=== PATIENT | female | born 1955 | race Caucasian/White ===

== ENCOUNTER 2016-09-26 19:25 | Emergency (ER) | payer MEDICARE ==
[~2016-09-26] VITALS: Ht 154.9 cm; Wt 51.7 kg
[~2016-09-26 19:25] MED LIST: BRINTELLIX PO; BUDE10.2 IH; BUSP5TAB PO; PROAIR HFA8.5 GM IH
--- NOTE | 2016-09-26 19:43 | ED.ADGEN ---
Past Medical History Past Medical History: Anxiety, Asthma, COPD, Depression, Hypertension Past Surgical History: No Surgical History Alcohol Use: None Drug Use: None Adult General Chief Complaint Chief Complaint: HEADACHE HPI HPI Patient is a 61 year old female presents emergency Department with a three-day history of migraine headache. Patient states that she gets one about every 3-5 years with these typical symptoms. She reports nausea, vomiting, photosensitivity. Denies any other complaints or recent illness. Review of Systems Review of Systems Constitutional: Denies fever or chills. [] Eyes: Denies change in visual acuity. [] HENT: Denies nasal congestion or sore throat. [] Respiratory: Denies cough or shortness of breath. [] Cardiovascular: Denies chest pain or edema. [] GI: Denies abdominal pain, nausea, vomiting, bloody stools or diarrhea. [] : Denies dysuria. [] Musculoskeletal: Denies back pain or joint pain. [] Integument: Denies rash. [] Neurologic: Denies headache, focal weakness or sensory changes. [] Endocrine: Denies polyuria or polydipsia. [] Lymphatic: Denies swollen glands. [] Psychiatric: Denies depression or anxiety. [] Current Medications Current Medications Current Medications Medications (Trade) Dose Ordered Sig/Khari Start Time Stop Time Status Last Admin Dose Admin Diphenhydramine HCl (Benadryl) 25 mg 1X ONCE 09/26/16 20:00 09/26/16 20:01 DC 09/26/16 20:01 25 MG Fentanyl Citrate (Fentanyl 2ml Vial) 75 mcg 1X ONCE 09/26/16 21:15 09/26/16 21:16 DC 09/26/16 21:08 75 MCG Ketorolac Tromethamine (Toradol) 15 mg 1X ONCE 09/26/16 20:00 09/26/16 20:01 DC 09/26/16 20:01 15 MG Metoclopramide HCl (Reglan) 10 mg 1X ONCE 09/26/16 20:00 09/26/16 20:01 DC 09/26/16 20:01 10 MG Sodium Chloride (Iv Sodium Chloride 0.9% 1000ml Bag) 1,000 ml @ 1,000 mls/hr Q1H 09/26/16 20:00 09/26/16 20:59 DC 09/26/16 20:02 1,000 MLS/HR Allergies Allergies Allergies Coded Allergies Type Severity Reaction Last Updated Verified No Known Drug Allergies 05/14/14 No Physical Exam Physical Exam Constitutional: Well developed, well nourished, no acute distress, non-toxic appearance. [] HENT: Normocephalic, atraumatic, bilateral external ears normal, oropharynx moist, no oral exudates, nose normal. [] Eyes: PERRLA, EOMI, conjunctiva normal, no discharge. [] Neck: Normal range of motion, no tenderness, supple, no stridor. [] Cardiovascular:Heart rate regular rhythm, no murmur [] Lungs & Thorax: Bilateral breath sounds clear to auscultation [] Abdomen: Bowel sounds normal, soft, no tenderness, no masses, no pulsatile masses. [] Skin: Warm, dry, no erythema, no rash. [] Back: No tenderness, no CVA tenderness. [] Extremities: No tenderness, no cyanosis, no clubbing, ROM intact, no edema. [] Neurologic: Alert and oriented X 3, normal motor function, normal sensory function, no focal deficits noted. [] Psychologic: Affect normal, judgement normal, mood normal. [] Current Patient Data Vital Signs Vital Signs Date Time Temp Pulse Resp B/P Pulse Ox O2 Delivery O2 Flow Rate FiO2 09/26/16 21:00 88 32 135/72 99 Nasal Cannula 3 09/26/16 19:45 98.5 98.5 EKG EKG [] Radiology/Procedures Radiology/Procedures [] Course & Med Decision Making Course & Med Decision Making Pertinent Labs and Imaging studies reviewed. (See chart for details) IV fluids, Reglan, Benadryl, and Toradol. Patient feels significantly better and is ready for discharge home. She is being sent home with supportive care instructions and follow-up directions. [] Dragon Disclaimer Dragon Disclaimer This electronic medical record was generated, in whole or in part, using a voice recognition dictation system. REY JONES MD Sep 26, 2016 19:43
[2016-09-26] MEDS ORDERED: DIPHENHYDRAMINE 50 MG/ML VIAL IVP ONE (20:00)
[2016-09-26] MEDS ORDERED: IV NORMAL SALINE 1000ML BAG 1,000 ML IV SCH (20:00)
[2016-09-26] MEDS ORDERED: METOCLOPRAMIDE HCL 10 MG/2 ML VIAL. IV ONE (20:00)
[2016-09-26] MEDS ORDERED: KETOROLAC 15 MG/ML VIAL. IV ONE (20:00)
[2016-09-26 21:00] VITALS: BP 135/72
[2016-09-26] MEDS ORDERED: FENTANYL PF 100 MCG/2 ML VIAL. IV ONE (21:15)
== END 2016-09-26 21:27 | disposition home or self-care (01) ==
LOC: ER 19:25
DX: R11.2 Nausea with vomiting, unspecified (principal); L56.8 Other specified acute skin changes due to ultraviolet radiation; G43.909 Migraine, unspecified, not intractable, without status migrainosus; I10 Essential (primary) hypertension; F41.9 Anxiety disorder, unspecified; F32.9 Major depressive disorder, single episode, unspecified; J44.9 Chronic obstructive pulmonary disease, unspecified
CPT/HCPCS: 96361; 96374; 96375; 99284; J1200; J1885; J2765; J3010; J7030; 99285-25

== ENCOUNTER 2016-09-28 14:39 | Inpatient (IN) | payer MEDICARE, MEDICAID ==
[~2016-09-28] VITALS: Ht 154.9 cm; Wt 49.9 kg
[2016-09-28] MEDS ORDERED: IV NORMAL SALINE 1000ML BAG 1,000 ML IV SCH (15:45)
[2016-09-28] MEDS ORDERED: PROCHLORPERAZINE 10 MG/2 ML VIAL. IV ONE (15:45)
[2016-09-28] MEDS ORDERED: DIPHENHYDRAMINE 50 MG/ML VIAL IVP ONE (15:45)
--- NOTE | 2016-09-28 16:14 | RAD ---
Indication headache. Nausea and vomiting. Duration of symptoms for days. Noncontrast images of the head were obtained. No prior imaging of the head is available. The calvarium appears unremarkable. The visualized paranasal sinuses appear normal. There is no subdural or epidural hematoma. There is no evidence of hemorrhage. There is no midline shift. There is possible mild sulci effacement and or swelling in the right temporal lobe. The finding is not certain. If right hemispheric and/or temporal pathology is suspect an MRI examination would be advised. IMPRESSION: No evidence of hemorrhage. Possible mild swelling in the right temporal area. The finding is not certain. See above discussion PQRS Compliance Statement: One or more of the following individualized dose reduction techniques were utilized for this examination: 1. Automated exposure control 2. Adjustment of the mA and/or kV according to patient size 3. Use of iterative reconstruction technique
[2016-09-28 16:46] LABS: BASO # 0.1 x10^3/uL (0.0-0.2); BASO % 1 % (0-3); EOS % 2 % (0-3); HEMATOCRIT 41.7 % (36.0-47.0); HEMOGLOBIN 13.8 g/dL (12.0-15.5); LYMPH # 1.5 x10^3/uL (1.0-4.8); LYMPH % 18 % (24-48); MEAN CORPUSCULAR HEMOGLOBIN 29 pg (25-35); MEAN CORPUSCULAR HGB CONC 33 g/dL (31-37); MEAN CORPUSCULAR VOLUME 88 fL (79-100); MONO % 10 % (0-9); NEUT % 69 % (31-73); PLATELET COUNT 295 x10^3/uL (140-400); RED BLOOD COUNT 4.73 x10^6/uL (3.50-5.40); RED CELL DISTRIBUTION WIDTH 12.9 % (11.5-14.5); WHITE BLOOD COUNT 8.6 x10^3/uL (4.0-11.0)
[2016-09-28 17:01] LABS: CALCIUM 9.3 mg/dL (8.5-10.1); CREATININE 0.8 mg/dL (0.6-1.0); GFR 72.7; POTASSIUM 3.6 mmol/L (3.5-5.1)
[2016-09-28 17:07] LABS: ALBUMIN 4.1 g/dL (3.4-5.0); ALBUMIN/GLOBULIN RATIO 1.2 (1.0-1.7); TOTAL BILIRUBIN 0.4 mg/dL (0.2-1.0); TOTAL PROTEIN 7.6 g/dL (6.4-8.2)
--- NOTE | 2016-09-28 17:51 | PHYS DOC ---
Past Medical History Past Medical History: Anxiety, Asthma, COPD, Depression, Hypertension, Migraines Past Surgical History: No Surgical History Additional Information: quit March 2016 Alcohol Use: None Drug Use: None Adult General Chief Complaint Chief Complaint: HEADACHE HPI HPI Patient is a 61 year old female who presents with headache. Patient reports she has had a migraine since this past . She describes a throbbing in the front of her head. Patient reports she has a headache everyday, but it is not as bad as this. However she does have a history of migraines similar in intensity to this one did occur about every 5 years. She has been taking allergy medication for cold as well as Excedrin with insufficient relief. She denies any fever. No numbness or weakness. She does report some soreness in her back from lying curled up on the couch for so long. She was seen at [facility] today and instructed to come to the Emergency Department. Review of Systems Review of Systems Constitutional: Denies fever or chills Eyes: Denies change in visual acuity or eye pain HENT: Denies nasal congestion or sore throat Respiratory: Denies cough or shortness of breath Cardiovascular: Denies chest pain GI: Denies abdominal pain, nausea, vomiting, bloody stools or diarrhea : Denies dysuria or hematuria Musculoskeletal: Denies joint pain Integument: Denies rash or skin lesions Neurologic: Headache. Denies focal weakness or sensory changes Current Medications Current Medications Current Medications Medications (Trade) Dose Ordered Sig/Khari Start Time Stop Time Status Last Admin Dose Admin Diphenhydramine HCl (Benadryl) 25 mg 1X ONCE 09/28/16 15:45 09/28/16 15:50 DC 09/28/16 16:25 25 MG Prochlorperazine Edisylate (Compazine) 10 mg 1X ONCE 09/28/16 15:45 09/28/16 15:50 DC 09/28/16 16:25 10 MG Sodium Chloride (Iv Sodium Chloride 0.9% 1000ml Bag) 1,000 ml @ 1,000 mls/hr Q1H 09/28/16 15:45 09/28/16 16:44 DC 09/28/16 16:26 1,000 MLS/HR Allergies Allergies Allergies Coded Allergies Type Severity Reaction Last Updated Verified No Known Drug Allergies 09/28/16 No Physical Exam Physical Exam Constitutional: Well developed, well nourished, non-toxic appearance HENT: Normocephalic, atraumatic, bilateral external ears normal Eyes: PERRL, EOMI, conjunctiva normal, no discharge Neck: Normal range of motion, no stridor. Supple. Cardiovascular: Heart rate normal, regular rhythm, no murmur Lungs & Thorax: Bilateral breath sounds clear to auscultation Abdomen: Bowel sounds normal, soft, non-distended, no TTP Skin: Warm, dry, no erythema, no rash Back: No stepoff or deformity Extremities: No obvious deformity, no edema. R hand bruised from prior IV Neurologic: Alert and oriented X 3, GCS 15, CN II-XII grossly intact, strength intact and symmetrical throughout, sensation to light touch intact throughout Current Patient Data Vital Signs Vital Signs Date Time Temp Pulse Resp B/P Pulse Ox O2 Delivery O2 Flow Rate FiO2 09/28/16 14:50 98.4 91 22 122/79 98 Room Air 98.4 Lab Values Laboratory Tests Test 09/28/16 16:25 09/28/16 17:54 White Blood Count 8.6x10^3/uL (4.0-11.0) Red Blood Count 4.73x10^6/uL (3.50-5.40) Hemoglobin 13.8g/dL (12.0-15.5) Hematocrit 41.7% (36.0-47.0) Mean Corpuscular Volume 88fL (79-100) Mean Corpuscular Hemoglobin 29pg (25-35) Mean Corpuscular Hemoglobin Concent 33g/dL (31-37) Red Cell Distribution Width 12.9% (11.5-14.5) Platelet Count 295x10^3/uL (140-400) Neutrophils (%) (Auto) 69% (31-73) Lymphocytes (%) (Auto) 18% (24-48) L Monocytes (%) (Auto) 10% (0-9) H Eosinophils (%) (Auto) 2% (0-3) Basophils (%) (Auto) 1% (0-3) Neutrophils # (Auto) 5.9x10^3uL (1.8-7.7) Lymphocytes # (Auto) 1.5x10^3/uL (1.0-4.8) Monocytes # (Auto) 0.9x10^3/uL (0.0-1.1) Eosinophils # (Auto) 0.2x10^3/uL (0.0-0.7) Basophils # (Auto) 0.1x10^3/uL (0.0-0.2) Sodium Level 144mmol/L (136-145) Potassium Level 3.6mmol/L (3.5-5.1) Chloride Level 103mmol/L (98-107) Carbon Dioxide Level 31mmol/L (21-32) Anion Gap 10 (6-14) Blood Urea Nitrogen 11mg/dL (7-20) Creatinine 0.8mg/dL (0.6-1.0) Estimated GFR (Cockcroft-Gault) 72.7 BUN/Creatinine Ratio 14 (6-20) Glucose Level 93mg/dL (70-99) Calcium Level 9.3mg/dL (8.5-10.1) Total Bilirubin 0.4mg/dL (0.2-1.0) Aspartate Amino Transferase (AST) 21U/L (15-37) Alanine Aminotransferase (ALT) 20U/L (14-59) Alkaline Phosphatase 121U/L (46-116) H Total Protein 7.6g/dL (6.4-8.2) Albumin 4.1g/dL (3.4-5.0) Albumin/Globulin Ratio 1.2 (1.0-1.7) Urine Collection Type Unknown Urine Color Yellow Urine Clarity Cloudy Urine pH 6.5 Urine Specific [place] 1.015 Urine Protein Negativemg/dL (NEG-TRACE) Urine Glucose (UA) Negativemg/dL (NEG) Urine Ketones (Stick) 15mg/dL (NEG) Urine Blood Negative (NEG) Urine Nitrite Negative (NEG) Urine Bilirubin Negative (NEG) Urine Urobilinogen Dipstick 0.2mg/dL (0.2 mg/dL) Urine Leukocyte Esterase Small (NEG) Urine RBC 0/HPF (0-2) Urine WBC 5-10/HPF (0-4) Urine Squamous Epithelial Cells Few/LPF Urine Bacteria 0/HPF (0-FEW) Urine Mucus Mod/LPF Laboratory Tests 09/28/16 16:25 Laboratory Tests 09/28/16 16:25 EKG EKG [] Radiology/Procedures Radiology/Procedures CT head: Indication headache. Nausea and vomiting. Duration of symptoms for days. Noncontrast images of the head were obtained. No prior imaging of the head is available. The calvarium appears unremarkable. The visualized paranasal sinuses appear normal. There is no subdural or epidural hematoma. There is no evidence of hemorrhage. There is no midline shift. There is possible mild sulci effacement and or swelling in the right temporal lobe. The finding is not certain. If right hemispheric and/or temporal pathology is suspect an MRI examination would be advised. IMPRESSION: No evidence of hemorrhage. Possible mild swelling in the right temporal area. The finding is not certain. See above discussion Course & Med Decision Making Course & Med Decision Making Pertinent Labs and Imaging studies reviewed. (See chart for details) Patient is 61-year-old female who presents with persistent migraine headache. Has had migraines like this multiple times in the past. Neuro exam without focal deficit. CT head, labs ordered to evaluate. IV fluids, migraine cocktail ordered for pain relief. Labs unremarkable. No fever, no leukocytosis. CT head results as above. Discussed results with patient and family. Patient still having headache at this time. Discussed with Dr. Kay, will admit under her care for further evaluation and treatment. Dragon Disclaimer Dragon Disclaimer This electronic medical record was generated, in whole or in part, using a voice recognition dictation system. Departure Departure Impression: Primary Impression: Intractable migraine Disposition: ADMITTED INPATIENT Admitting Physician: Veronica Kay Condition: STABLE Referrals: ANTWAN FIGUEROA APRN (PCP) BREANN YUAN MD Sep 28, 2016 17:51
[2016-09-28] MEDS ORDERED: MORPHINE SULFATE 4 MG/ML DISP.SYRIN. IV ONE (18:00)
[2016-09-28] MEDS ORDERED: ACETAMINOPHEN 500 MG TABLET PO ONE (18:00)
[2016-09-28 18:01] LABS: BILIRUBIN,URINE NEGATIVE (NEG); GLUCOSE,URINE NEGATIVE (NEG); NITRITE,URINE NEGATIVE (NEG); PH,URINE 6.5; PROTEIN,URINE NEGATIVE (NEG-TRACE); UROBILINOGEN,URINE 0.2 mg/dL (0.2 mg/dL)
[2016-09-28 18:07] LABS: BACTERIA,URINE 0 /HPF (0-FEW); RBC,URINE 0 /HPF (0-2); SQUAMOUS EPITHELIAL CELL,UR FEW /LPF
[2016-09-28] MEDS ORDERED: HYDROCODONE/APAP 5/325MG TABLET. PO PRN (18:15)
[2016-09-28] MEDS ORDERED: MORPHINE SULFATE 2 MG/ML DISP.SYRIN. IV PRN (18:15)
[2016-09-28] MEDS ORDERED: ONDANSETRON PF 4 MG/2 ML VIAL. IV PRN (18:15)
[2016-09-28] MEDS ORDERED: ACETAMINOPHEN 325 MG TABLET. PO PRN (18:15)
[2016-09-28] MEDS ORDERED: hydrALAZINE 20 MG/ML VIAL. IVP PRN (18:30)
[2016-09-28] MEDS ORDERED: ALBUTEROL SULFATE 2.5 MG/3 ML NEBU. NEB PRN (18:30)
--- NOTE | 2016-09-28 18:30 | ACF ---
Admission Forms Criteria HEADACHES Clinical Indications for Admission to Inpatient Care (Place 'X' for any and all applicable criteria): Admission is indicated for ANY ONE of the following(1)(2)(3)(4): [X]I. Inpatient admission required rather than observational care (Also use Headaches: Observation Care as appropriate) because of ANY ONE of the following: [X]a) Severe pain requiring acute inpatient management [ ]b) Altered mental status that is severe or persistent [ ]c) Vomiting or dehydration that is severe or persistent [ ]d) New-onset focal neurologic deficit that is severe or persistent [ ]e) Hypertension requiring inpatient treatment [ ]f) Severe (new) neurologic findings requiring inpatient care as indicated by ANY ONE of following(9)(10): [ ]1) Papilledema [ ]2) Cerebral edema [ ]3) Mass effect on CT scan [ ]4) Cerebral bleeding, ischemia, or vasospasm(16) [ ]5) Hydrocephalus(17) [ ]6) Uncontrolled seizures [ ]g) IV infusion of anticoagulation, platelet inhibitors vasoactive, or antiarrhythmic medication. [ ]h) Cerebral bleeding, hydrocephalus, or vasospasm monitoring (16) [ ]i) Increased intracranial pressure or cerebral edema monitoring (17) [ ]j) Other condition, treatment or monitoring requiring inpatient admission [ ]II. Unruptured but threatening aneurysm or vascular malformation [ ]III. Venous sinus thrombosis [ ]IV. Increased intracranial pressure [ ]V. Cerebral spinal fluid leak with decreased intracranial pressure [ ]. Medication-overuse headache that has failed all outpatient management options [ ]VII. Vasculitis (eg, giant cell (temporal) arteritis, central nervous system vasculitis) requiring IV corticosteroids, IV antithrombotic therapy, or inpatient monitoring (eg, visual symptoms or findings, other ischemic manifestations)[A](10)(11) Extended stay beyond goal length of stay may be needed for (27): [ ]a) Intractable migraine [ ]b) Subarachnoid or intracranial hemorrhage [ ]c) Malignant hypertension [ ]d) Detoxification from drug withdrawal in medication-overuse headache (29) The original [facility] content created by [facility] [employer] has been revised. The portions of the content which have been revised are identified through the use of italic text or in bold, and [employer] has neither reviewed nor approved the modified material.All other unmodified content is copyright [facility]. Please see references footnoted in the original [facility] edition 2016 Admission Criteria Met?: Yes KASH RAMON Sep 28, 2016 18:30
--- NOTE | 2016-09-28 18:34 | PDOC1 ---
History and Physical Date of Admission Date of Admission 09/28/16 Identification/Chief Complaint Chief Complaint headache Problems: Source Source: Caregiver, Chart review, Patient History of Present Illness History of Present Illness HPI HPI Patient is a 61 year old female who presents with headache. She has migraine for a long time, usually has headache daily, at the middle forhead, pulsating, noise and light bothers her, but she still can function daily. She takes exedrine daily for the headache. She has migraine flare every 3-5 years. not follow any neuro. Last , she has the severe headache again, constant, with vomiting on Wednesday, no vision change or other neurologic deficit, no fever, chills, sob, chest pain. She has had cold 1 week ago. She was seen at [facility] today and instructed to come to the Emergency Department. ct showed Possible mild swelling in the right temporal area.. Past Medical History Cardiovascular: HTN Pulmonary: COPD Past Surgical History Past Surgical History: No pertinent history Family History Family History: No Significant Social History Smoke: Quit ALCOHOL: none Drugs: None Current Problem List Problem List Problems Medical Problems: (1) Intractable migraine Status: Acute Current Medications Current Medications Current Medications Medications (Trade) Dose Ordered Sig/Khari Start Time Stop Time Status Last Admin Dose Admin Acetaminophen (Tylenol) 650 mg PRN Q6HRS PRN 09/28/16 18:15 Acetaminophen/ Hydrocodone Bitart (Lortab 5/325) 1 tab PRN Q4HRS PRN 09/28/16 18:15 Albuterol Sulfate (Ventolin Neb Soln) 2.5 mg RTQID 09/28/16 20:00 Budesonide (Pulmicort) 0.5 mg RTBID 09/28/16 20:00 Buspirone HCl (Buspar) 15 mg BID 09/28/16 21:00 Diphenhydramine HCl (Benadryl) 25 mg 1X ONCE 09/28/16 15:45 09/28/16 15:50 DC 09/28/16 16:25 25 MG Enoxaparin Sodium (Lovenox 40mg Syringe) 40 mg Q24H 09/28/16 21:00 Morphine Sulfate 1 mg PRN Q1HR PRN 09/28/16 18:15 Non-Formulary Medication 2 puff BID 09/28/16 21:00 UNV Ondansetron HCl (Zofran) 4 mg PRN Q6HRS PRN 09/28/16 18:15 Prochlorperazine Edisylate (Compazine) 10 mg 1X ONCE 09/28/16 15:45 09/28/16 15:50 DC 09/28/16 16:25 10 MG Sodium Chloride (Iv Sodium Chloride 0.9% 1000ml Bag) 1,000 ml @ 1,000 mls/hr Q1H 09/28/16 15:45 09/28/16 16:44 DC 09/28/16 16:26 1,000 MLS/HR Allergies Allergies Allergies Coded Allergies Type Severity Reaction Last Updated Verified No Known Drug Allergies 09/28/16 No ROS Review of System CONSTITUTIONAL: No fever or chills EYES: No recent changes SKIN: No rash or itching CARDIOVASCULAR: No chest pain, syncope, palpitations, or edema RESPIRATORY: No SOB or cough GASTROINTESTINAL: No nausea, vomiting or abdominal pain NEUROLOGICAL: No headaches or weakness ENDOCRINE: No cold or heat intolerance GENITOURINARY: No urgency or frequency of urination MUSCULOSKELETAL: No back pain or joint pain LYMPHATICS: No enlarged lymph nodes PSYCHIATRIC: No anxiety or depression Physical Exam Physical Exam GEN.: No apparent distress. Alert and oriented. looks very weak. HEENT: Head is normocephalic, atraumatic NECK: Supple. LUNGS: Clear to auscultation. HEART: RRR, S1, S2 present. Peripheral pulses intact ABDOMEN: Soft, nontender. Positive bowel sounds. EXTREMITIES: Without any cyanosis. NEUROLOGIC: Normal speech, normal tone PSYCHIATRIC: Normal affect, normal mood. SKIN: No ulcerations Vitals Vitals Vital Signs Date Time Temp Pulse Resp B/P Pulse Ox O2 Delivery O2 Flow Rate FiO2 09/28/16 14:50 98.4 91 22 122/79 98 Room Air 98.4 Labs Labs Laboratory Tests Test 09/28/16 16:25 09/28/16 17:54 White Blood Count 8.6x10^3/uL (4.0-11.0) Red Blood Count 4.73x10^6/uL (3.50-5.40) Hemoglobin 13.8g/dL (12.0-15.5) Hematocrit 41.7% (36.0-47.0) Mean Corpuscular Volume 88fL (79-100) Mean Corpuscular Hemoglobin 29pg (25-35) Mean Corpuscular Hemoglobin Concent 33g/dL (31-37) Red Cell Distribution Width 12.9% (11.5-14.5) Platelet Count 295x10^3/uL (140-400) Neutrophils (%) (Auto) 69% (31-73) Lymphocytes (%) (Auto) 18% (24-48) Monocytes (%) (Auto) 10% (0-9) Eosinophils (%) (Auto) 2% (0-3) Basophils (%) (Auto) 1% (0-3) Neutrophils # (Auto) 5.9x10^3uL (1.8-7.7) Lymphocytes # (Auto) 1.5x10^3/uL (1.0-4.8) Monocytes # (Auto) 0.9x10^3/uL (0.0-1.1) Eosinophils # (Auto) 0.2x10^3/uL (0.0-0.7) Basophils # (Auto) 0.1x10^3/uL (0.0-0.2) Sodium Level 144mmol/L (136-145) Potassium Level 3.6mmol/L (3.5-5.1) Chloride Level 103mmol/L (98-107) Carbon Dioxide Level 31mmol/L (21-32) Anion Gap 10 (6-14) Blood Urea Nitrogen 11mg/dL (7-20) Creatinine 0.8mg/dL (0.6-1.0) Estimated GFR (Cockcroft-Gault) 72.7 BUN/Creatinine Ratio 14 (6-20) Glucose Level 93mg/dL (70-99) Calcium Level 9.3mg/dL (8.5-10.1) Total Bilirubin 0.4mg/dL (0.2-1.0) Aspartate Amino Transf (AST/SGOT) 21U/L (15-37) Alanine Aminotransferase (ALT/SGPT) 20U/L (14-59) Alkaline Phosphatase 121U/L (46-116) Total Protein 7.6g/dL (6.4-8.2) Albumin 4.1g/dL (3.4-5.0) Albumin/Globulin Ratio 1.2 (1.0-1.7) Urine Collection Type Unknown Urine Color Yellow Urine Clarity Cloudy Urine pH 6.5 Urine Specific [place] 1.015 Urine Protein Negativemg/dL (NEG-TRACE) Urine Glucose (UA) Negativemg/dL (NEG) Urine Ketones (Stick) 15mg/dL (NEG) Urine Blood Negative (NEG) Urine Nitrite Negative (NEG) Urine Bilirubin Negative (NEG) Urine Urobilinogen Dipstick 0.2mg/dL (0.2 mg/dL) Urine Leukocyte Esterase Small (NEG) Urine RBC 0/HPF (0-2) Urine WBC 5-10/HPF (0-4) Urine Squamous Epithelial Cells Few/LPF Urine Bacteria 0/HPF (0-FEW) Urine Mucus Mod/LPF Laboratory Tests Test 09/28/16 16:25 09/28/16 17:54 White Blood Count 8.6x10^3/uL (4.0-11.0) Red Blood Count 4.73x10^6/uL (3.50-5.40) Hemoglobin 13.8g/dL (12.0-15.5) Hematocrit 41.7% (36.0-47.0) Mean Corpuscular Volume 88fL (79-100) Mean Corpuscular Hemoglobin 29pg (25-35) Mean Corpuscular Hemoglobin Concent 33g/dL (31-37) Red Cell Distribution Width 12.9% (11.5-14.5) Platelet Count 295x10^3/uL (140-400) Neutrophils (%) (Auto) 69% (31-73) Lymphocytes (%) (Auto) 18% (24-48) Monocytes (%) (Auto) 10% (0-9) Eosinophils (%) (Auto) 2% (0-3) Basophils (%) (Auto) 1% (0-3) Neutrophils # (Auto) 5.9x10^3uL (1.8-7.7) Lymphocytes # (Auto) 1.5x10^3/uL (1.0-4.8) Monocytes # (Auto) 0.9x10^3/uL (0.0-1.1) Eosinophils # (Auto) 0.2x10^3/uL (0.0-0.7) Basophils # (Auto) 0.1x10^3/uL (0.0-0.2) Sodium Level 144mmol/L (136-145) Potassium Level 3.6mmol/L (3.5-5.1) Chloride Level 103mmol/L (98-107) Carbon Dioxide Level 31mmol/L (21-32) Anion Gap 10 (6-14) Blood Urea Nitrogen 11mg/dL (7-20) Creatinine 0.8mg/dL (0.6-1.0) Estimated GFR (Cockcroft-Gault) 72.7 BUN/Creatinine Ratio 14 (6-20) Glucose Level 93mg/dL (70-99) Calcium Level 9.3mg/dL (8.5-10.1) Total Bilirubin 0.4mg/dL (0.2-1.0) Aspartate Amino Transf (AST/SGOT) 21U/L (15-37) Alanine Aminotransferase (ALT/SGPT) 20U/L (14-59) Alkaline Phosphatase 121U/L (46-116) Total Protein 7.6g/dL (6.4-8.2) Albumin 4.1g/dL (3.4-5.0) Albumin/Globulin Ratio 1.2 (1.0-1.7) Urine Collection Type Unknown Urine Color Yellow Urine Clarity Cloudy Urine pH 6.5 Urine Specific [place] 1.015 Urine Protein Negativemg/dL (NEG-TRACE) Urine Glucose (UA) Negativemg/dL (NEG) Urine Ketones (Stick) 15mg/dL (NEG) Urine Blood Negative (NEG) Urine Nitrite Negative (NEG) Urine Bilirubin Negative (NEG) Urine Urobilinogen Dipstick 0.2mg/dL (0.2 mg/dL) Urine Leukocyte Esterase Small (NEG) Urine RBC 0/HPF (0-2) Urine WBC 5-10/HPF (0-4) Urine Squamous Epithelial Cells Few/LPF Urine Bacteria 0/HPF (0-FEW) Urine Mucus Mod/LPF VTE Prophylaxis Ordered VTE Prophylaxis Devices: Yes VTE Pharmacological Prophylaxi: Yes Assessment/Plan Assessment/Plan 1. intractable headache, likely migraine flare 2. copd 3. depression 4. anxiety 5. HTN plan: 1. brain MRI 2. neuro consult 3. add sumatriptan 6mg sc x1. pt got benadryl and compazine in ER. REGlan iv x1 4. hold exedrine 5. sumatriptan prn 6. pt likely need migraine prevention meds when dc. dvt ppx cont home meds MARTIN,CHUNMEI MD Sep 28, 2016 18:34
[2016-09-28] MEDS ORDERED: METOCLOPRAMIDE HCL 10 MG/2 ML VIAL. IV ONE (19:00)
[2016-09-28] MEDS ORDERED: SUMATRIPTAN 6 MG/0.5 ML VIAL. SQ ONE (19:00)
[2016-09-28] MEDS: BUDESONIDE 0.5 MG/2 ML NEBU NEB SCH (20:12)
[2016-09-28] MEDS: ALBUTEROL SULFATE 2.5 MG/3 ML NEBU. NEB SCH (20:12)
[2016-09-28] MEDS: ENOXAPARIN 40 MG/0.4 ML DISP.SYRIN. SQ SCH (20:56)
[2016-09-28] MEDS: busPIRone 5 MG TABLET. PO SCH (20:56)
[2016-09-28] MEDS ORDERED: NON FORMULARY ITEM (Budesonide/Formoterol Fumarate (Symbicort 160-4.5 Mcg Inhaler) 2 PUFF) IH SCH (21:00)
[2016-09-28 21:12] VITALS: BP 128/61
[2016-09-28 23:03] VITALS: BP 99/48
[2016-09-29 03:01] VITALS: BP 98/49
[2016-09-29 05:19] LABS: BASO # 0.1 x10^3/uL (0.0-0.2); BASO % 2 % (0-3); EOS % 4 % (0-3); HEMATOCRIT 35.3 % (36.0-47.0); HEMOGLOBIN 11.9 g/dL (12.0-15.5); LYMPH % 31 % (24-48); MEAN CORPUSCULAR HEMOGLOBIN 30 pg (25-35); MEAN CORPUSCULAR HGB CONC 34 g/dL (31-37); MEAN CORPUSCULAR VOLUME 88 fL (79-100); MONO % 14 % (0-9); NEUT % 49 % (31-73); PLATELET COUNT 261 x10^3/uL (140-400); RED CELL DISTRIBUTION WIDTH 12.9 % (11.5-14.5); WHITE BLOOD COUNT 6.4 x10^3/uL (4.0-11.0)
[2016-09-29] MEDS: SUMATRIPTAN SUCCINATE 25 MG TABLET. PO PRN ×2 (05:26→19:54)
[2016-09-29 05:40] LABS: CALCIUM 8.6 mg/dL (8.5-10.1); CREATININE 0.8 mg/dL (0.6-1.0); GFR 72.7; POTASSIUM 3.2 mmol/L (3.5-5.1)
[2016-09-29 07:00] VITALS: BP 127/59
[2016-09-29] MEDS: ALBUTEROL SULFATE 2.5 MG/3 ML NEBU. NEB SCH ×4 (07:17→20:20)
[2016-09-29] MEDS: BUDESONIDE 0.5 MG/2 ML NEBU NEB SCH ×2 (08:00→20:20)
[2016-09-29] MEDS: busPIRone 5 MG TABLET. PO SCH ×2 (08:43→21:06)
[2016-09-29] MEDS: AMLODIPINE BESYLATE 5 MG TABLET PO SCH (08:43)
[2016-09-29] MEDS ORDERED: ENOXAPARIN 40 MG/0.4 ML DISP.SYRIN. SQ SCH (09:00)
--- NOTE | 2016-09-29 10:42 | PDOC2 ---
NEUROLOGY CONSULT Date of Admission Date of Admission DATE: 09/29/16 TIME: 10:34 Reason for Consult Reason for Consult: Headache Referring Physician Referring Physician: Dr. Kay PCP: Marianne Castaneda APRN Source Source: Chart review, Patient History of Present Illness History of Present Illness The patient is a 61-year-old right-handed female with the chief complaint of migraine. She describes throbbing pain with photophonophobia nausea, with episodes about every 3 years or so. She comes into the hospital for pain control and leaves. I've never seen her for these migraines, though, but this year 7 years ago for a peroneal neuropathy. She has had this headache for the past week. She has had some nausea. She denies diplopia, dysphagia, dysarthria, focal numbness, weakness, or cognitive change. Past Medical History Cardiovascular: HTN Pulmonary: Asthma, COPD (On home oxygen) CENTRAL NERVOUS SYSTEM: Migraine, Other (peroneal neuropathy) Psych: Anxiety, Depression Past Surgical History Past Surgical History: No pertinent history Family History Family History: No pertinent hx Social History Social History Single, quit smoking 25 years ago, no alcohol Current Medications Current Medications Current Medications Sodium Chloride (Iv Sodium Chloride 0.9% 1000ml Bag) 1,000 ml @ 1,000 mls/hr Q1H IV Last administered on 09/28/16 16:26; Start 09/28/16 at 15:45; Stop at 16:44; Status DC Prochlorperazine Edisylate (Compazine) 10 mg 1X ONCE IV Last administered on 16:25; Start 09/28/16 at 15:45; Stop 09/28/16 at 15:50; Status DC Diphenhydramine HCl (Benadryl) 25 mg 1X ONCE IVP Last administered on 16:25; Start 09/28/16 at 15:45; Stop 09/28/16 at 15:50; Status DC Acetaminophen (Tylenol) 1,000 mg 1X ONCE PO Last administered on 09/28/16 19: 09; Start 09/28/16 at 18:00; Stop 09/28/16 at 18:01; Status DC Morphine Sulfate 4 mg 1X ONCE IV Last administered on 09/28/16 19:14; Start 09/28/16 at 18:00; Stop 09/28/16 at 18:01; Status DC Buspirone HCl (Buspar) 15 mg BID PO Last administered on 09/29/16 08:43; Start 09/28/16 at 21:00 Albuterol Sulfate (Ventolin Neb Soln) 2.5 mg PRN Q4HRS PRN NEB SHORTNESS OF BREATH; Start 09/28/16 at 18:30 Non-Formulary Medication 2 puff BID IH ; Start 09/28/16 at 21:00; Status UNV Ondansetron HCl (Zofran) 4 mg PRN Q6HRS PRN IV NAUSEA/VOMITING; Start 09/28/16 at 18:15 Morphine Sulfate 1 mg PRN Q1HR PRN IV PAIN; Start 09/28/16 at 18:15 Acetaminophen/ Hydrocodone Bitart (Lortab 5/325) 1 tab PRN Q4HRS PRN PO MILD PAIN Last administered on 09/29/16 08:42; Start 09/28/16 at 18:15 Acetaminophen (Tylenol) 650 mg PRN Q6HRS PRN PO MILD PAIN / TEMP; Start at 18:15 Enoxaparin Sodium (Lovenox 40mg Syringe) 40 mg Q24H SQ Last administered on 20:56; Start 09/28/16 at 21:00 Budesonide (Pulmicort) 0.5 mg RTBID NEB Last administered on 09/28/16 20:12; Start 09/28/16 at 20:00 Albuterol Sulfate (Ventolin Neb Soln) 2.5 mg RTQID NEB Last administered on 07:17; Start 09/28/16 at 20:00 Sumatriptan Succinate (Imitrex) 6 mg 1X ONCE SQ Last administered on 19:20; Start 09/28/16 at 19:00; Stop 09/28/16 at 19:01; Status DC Sumatriptan Succinate (Imitrex) 50 mg PRN QID PRN PO MIGRAINE HEADACHE Last administered on 09/29/16 05:26; Start 09/28/16 at 18:30 Metoclopramide HCl (Reglan) 10 mg 1X ONCE IV Last administered on 09/28/16 19 :11; Start 09/28/16 at 19:00; Stop 09/28/16 at 19:01; Status DC Amlodipine Besylate (Norvasc) 5 mg DAILY PO Last administered on 09/29/16 08: 43; Start 09/29/16 at 09:00 Hydralazine HCl (Apresoline) 10 mg PRN Q4HRS PRN IVP ELEVATED BP, SEE COMMENTS ; Start 09/28/16 at 18:30 Enoxaparin Sodium (Lovenox 40mg Syringe) 40 mg DAILY SQ ; Start 09/29/16 at 09: 00; Status UNV Active Scripts Active Reported Symbicort 160-4.5 Mcg Inhaler (Budesonide/Formoterol Fumarate) 10.2 Gm Hfa.aer.ad 2 Puff IH BID Proair Hfa Inhaler (Albuterol Sulfate) 8.5 Gm Hfa.aer.ad 2 Puff IH PRN Q4-6HRS [Brintellix ] 10 Mg PO BID Buspirone Hcl 5 Mg Tablet 1 Tab PO BID Allergies Allergies: Coded Allergies: No Known Drug Allergies (Unverified , 09/28/16) ROS Review of System Positive for shortness of breath, negative for fevers, chills, weight loss, chest pain, indigestion, hematochezia, melena, dysuria. Full 14-point review systems is negative. Physical Exam Physical Examination PHYSICAL EXAMINATION: Vital signs: see above. General appearance is normal and in no acute distress. HEENT: Normocephalic and nontraumatic. Eyes, nose, ears, and throat are unremarkable. Neck is supple. No lymphadenopathy. No bruits are heard over the carotid artery. No crepitus. NEUROLOGICAL EXAMINATION: Mental Status Examination: Alert. Oriented to time, place, and person. Answers questions and follows commends. Pupils are equal round and reactive to light and accommodation. Funduscopic exam: No papilledema. Extraocular movements are intact. Visual field exam shows no defect on the direct confrontation. No motor or sensory deficits on the facial exam. Uvula in the midline and the soft palate elevated symmetrically. No deviation of the tongue to any direction. Gross hearing is normal. Shoulder shrug normal. Muscle tone is normal. Muscle strength is 5. Deep tendon reflexes are 2+ all around. Plantar reflex is with flexion response bilaterally. Isfarl-le-mtwh test performance is accurate. Alternative movements are accurate. Gait not tested. Sensory exam shows no deficits. No cerebellar signs are elicited. Vitals VITALS Vital Signs Date Time Temp Pulse Resp B/P Pulse Ox O2 Delivery O2 Flow Rate FiO2 09/29/16 09:55 Nasal Cannula 3.0 09/29/16 08:43 88 127/59 09/29/16 07:18 97 09/29/16 07:00 97.9 22 97.9 Labs Labs Laboratory Tests Test 09/28/16 16:25 09/28/16 17:54 09/29/16 04:50 White Blood Count 8.6x10^3/uL (4.0-11.0) 6.4x10^3/uL (4.0-11.0) Red Blood Count 4.73x10^6/uL (3.50-5.40) 4.00x10^6/uL (3.50-5.40) Hemoglobin 13.8g/dL (12.0-15.5) 11.9g/dL (12.0-15.5) Hematocrit 41.7% (36.0-47.0) 35.3% (36.0-47.0) Mean Corpuscular Volume 88fL (79-100) 88fL (79-100) Mean Corpuscular Hemoglobin 29pg (25-35) 30pg (25-35) Mean Corpuscular Hemoglobin Concent 33g/dL (31-37) 34g/dL (31-37) Red Cell Distribution Width 12.9% (11.5-14.5) 12.9% (11.5-14.5) Platelet Count 295x10^3/uL (140-400) 261x10^3/uL (140-400) Neutrophils (%) (Auto) 69% (31-73) 49% (31-73) Lymphocytes (%) (Auto) 18% (24-48) 31% (24-48) Monocytes (%) (Auto) 10% (0-9) 14% (0-9) Eosinophils (%) (Auto) 2% (0-3) 4% (0-3) Basophils (%) (Auto) 1% (0-3) 2% (0-3) Neutrophils # (Auto) 5.9x10^3uL (1.8-7.7) 3.2x10^3uL (1.8-7.7) Lymphocytes # (Auto) 1.5x10^3/uL (1.0-4.8) 2.0x10^3/uL (1.0-4.8) Monocytes # (Auto) 0.9x10^3/uL (0.0-1.1) 0.9x10^3/uL (0.0-1.1) Eosinophils # (Auto) 0.2x10^3/uL (0.0-0.7) 0.2x10^3/uL (0.0-0.7) Basophils # (Auto) 0.1x10^3/uL (0.0-0.2) 0.1x10^3/uL (0.0-0.2) Sodium Level 144mmol/L (136-145) 146mmol/L (136-145) Potassium Level 3.6mmol/L (3.5-5.1) 3.2mmol/L (3.5-5.1) Chloride Level 103mmol/L (98-107) 108mmol/L (98-107) Carbon Dioxide Level 31mmol/L (21-32) 31mmol/L (21-32) Anion Gap 10 (6-14) 7 (6-14) Blood Urea Nitrogen 11mg/dL (7-20) 12mg/dL (7-20) Creatinine 0.8mg/dL (0.6-1.0) 0.8mg/dL (0.6-1.0) Estimated GFR (Cockcroft-Gault) 72.7 72.7 BUN/Creatinine Ratio 14 (6-20) Glucose Level 93mg/dL (70-99) 85mg/dL (70-99) Calcium Level 9.3mg/dL (8.5-10.1) 8.6mg/dL (8.5-10.1) Total Bilirubin 0.4mg/dL (0.2-1.0) Aspartate Amino Transf (AST/SGOT) 21U/L (15-37) Alanine Aminotransferase (ALT/SGPT) 20U/L (14-59) Alkaline Phosphatase 121U/L (46-116) Total Protein 7.6g/dL (6.4-8.2) Albumin 4.1g/dL (3.4-5.0) Albumin/Globulin Ratio 1.2 (1.0-1.7) Urine Collection Type Unknown Urine Color Yellow Urine Clarity Cloudy Urine pH 6.5 Urine Specific Hudson 1.015 Urine Protein Negativemg/dL (NEG-TRACE) Urine Glucose (UA) Negativemg/dL (NEG) Urine Ketones (Stick) 15mg/dL (NEG) Urine Blood Negative (NEG) Urine Nitrite Negative (NEG) Urine Bilirubin Negative (NEG) Urine Urobilinogen Dipstick 0.2mg/dL (0.2 mg/dL) Urine Leukocyte Esterase Small (NEG) Urine RBC 0/HPF (0-2) Urine WBC 5-10/HPF (0-4) Urine Squamous Epithelial Cells Few/LPF Urine Bacteria 0/HPF (0-FEW) Urine Mucus Mod/LPF Laboratory Tests Test 09/28/16 16:25 09/28/16 17:54 09/29/16 04:50 White Blood Count 8.6x10^3/uL (4.0-11.0) 6.4x10^3/uL (4.0-11.0) Red Blood Count 4.73x10^6/uL (3.50-5.40) 4.00x10^6/uL (3.50-5.40) Hemoglobin 13.8g/dL (12.0-15.5) 11.9g/dL (12.0-15.5) Hematocrit 41.7% (36.0-47.0) 35.3% (36.0-47.0) Mean Corpuscular Volume 88fL (79-100) 88fL (79-100) Mean Corpuscular Hemoglobin 29pg (25-35) 30pg (25-35) Mean Corpuscular Hemoglobin Concent 33g/dL (31-37) 34g/dL (31-37) Red Cell Distribution Width 12.9% (11.5-14.5) 12.9% (11.5-14.5) Platelet Count 295x10^3/uL (140-400) 261x10^3/uL (140-400) Neutrophils (%) (Auto) 69% (31-73) 49% (31-73) Lymphocytes (%) (Auto) 18% (24-48) 31% (24-48) Monocytes (%) (Auto) 10% (0-9) 14% (0-9) Eosinophils (%) (Auto) 2% (0-3) 4% (0-3) Basophils (%) (Auto) 1% (0-3) 2% (0-3) Neutrophils # (Auto) 5.9x10^3uL (1.8-7.7) 3.2x10^3uL (1.8-7.7) Lymphocytes # (Auto) 1.5x10^3/uL (1.0-4.8) 2.0x10^3/uL (1.0-4.8) Monocytes # (Auto) 0.9x10^3/uL (0.0-1.1) 0.9x10^3/uL (0.0-1.1) Eosinophils # (Auto) 0.2x10^3/uL (0.0-0.7) 0.2x10^3/uL (0.0-0.7) Basophils # (Auto) 0.1x10^3/uL (0.0-0.2) 0.1x10^3/uL (0.0-0.2) Sodium Level 144mmol/L (136-145) 146mmol/L (136-145) Potassium Level 3.6mmol/L (3.5-5.1) 3.2mmol/L (3.5-5.1) Chloride Level 103mmol/L (98-107) 108mmol/L (98-107) Carbon Dioxide Level 31mmol/L (21-32) 31mmol/L (21-32) Anion Gap 10 (6-14) 7 (6-14) Blood Urea Nitrogen 11mg/dL (7-20) 12mg/dL (7-20) Creatinine 0.8mg/dL (0.6-1.0) 0.8mg/dL (0.6-1.0) Estimated GFR (Cockcroft-Gault) 72.7 72.7 BUN/Creatinine Ratio 14 (6-20) Glucose Level 93mg/dL (70-99) 85mg/dL (70-99) Calcium Level 9.3mg/dL (8.5-10.1) 8.6mg/dL (8.5-10.1) Total Bilirubin 0.4mg/dL (0.2-1.0) Aspartate Amino Transf (AST/SGOT) 21U/L (15-37) Alanine Aminotransferase (ALT/SGPT) 20U/L (14-59) Alkaline Phosphatase 121U/L (46-116) Total Protein 7.6g/dL (6.4-8.2) Albumin 4.1g/dL (3.4-5.0) Albumin/Globulin Ratio 1.2 (1.0-1.7) Urine Collection Type Unknown Urine Color Yellow Urine Clarity Cloudy Urine pH 6.5 Urine Specific [place] 1.015 Urine Protein Negativemg/dL (NEG-TRACE) Urine Glucose (UA) Negativemg/dL (NEG) Urine Ketones (Stick) 15mg/dL (NEG) Urine Blood Negative (NEG) Urine Nitrite Negative (NEG) Urine Bilirubin Negative (NEG) Urine Urobilinogen Dipstick 0.2mg/dL (0.2 mg/dL) Urine Leukocyte Esterase Small (NEG) Urine RBC 0/HPF (0-2) Urine WBC 5-10/HPF (0-4) Urine Squamous Epithelial Cells Few/LPF Urine Bacteria 0/HPF (0-FEW) Urine Mucus Mod/LPF Images Images The calvarium appears unremarkable. The visualized paranasal sinuses appear normal. There is no subdural or epidural hematoma. There is no evidence of hemorrhage. There is no midline shift. There is possible mild sulci effacement and or swelling in the right temporal lobe. The finding is not certain. If right hemispheric and/or temporal pathology is suspect an MRI examination would be advised. IMPRESSION: No evidence of hemorrhage. Possible mild swelling in the right temporal area. The finding is not certain. See above discussion Assessment/Plan Assessment/Plan Impression: Migraine headache, now 11/18, the patient says Abnormal head CT, I reviewed images and am not impressed, but certainly defer to radiologist. Recommendations: Await MRI Further studies depending on the results I agree with the current medication regimen I will consider prophylactic migraine medication if headache frequency increases. Thank you for letting me help with the patient's care. NATHALY CM MD Sep 29, 2016 10:42
[2016-09-29 11:00] VITALS: BP 125/69
--- NOTE | 2016-09-29 13:13 | RAD ---
PROCEDURE MRI of the brain without contrast 09/29/2016 HISTORY Severe migraine headaches. TECHNIQUE Unenhanced T1 weighted sagittal and axial, T2 weighted axial and coronal and FLAIR, gradient echo and diffusion weighted axial images of the brain were obtained. FINDINGS Comparison is made to the patient's CT scan of the head dated 09/28/2016. There is mild generalized parenchymal atrophy. Patchy and several small focal areas of abnormally increased signal intensity are seen within the periventricular and subcortical white matter of both cerebral hemispheres on the FLAIR and T2 weighted images consistent most likely with areas of mild small vessel ischemic disease. No acute parenchymal abnormality is seen. There is no MRI evidence of acute ischemia/infarction. No extra-axial fluid collection is seen. Mild mucosal thickening is seen scattered throughout the paranasal sinuses. Normal flow voids are seen within the major vascular structures surrounding the brain parenchyma. IMPRESSION No acute parenchymal abnormality is seen. Electronically signed by: Bay Magallon MD (Sep 29, 2016 13:11:08)
[2016-09-29] MEDS ORDERED: POTASSIUM CHLORIDE 20 MEQ TABLET.ER. PO ONE (13:15)
[2016-09-29] MEDS ORDERED: ONDANSETRON PF 4 MG/2 ML VIAL. IV PRN (13:30)
[2016-09-29] MEDS ORDERED: ASA/APAP/CAFFEINE 250/250/65MG TABLET. PO PRN (13:30)
[2016-09-29] MEDS: LIDOCAINE (700MG/PATCH) PATCH. TD SCH (14:10)
[2016-09-29] MEDS: BUTALB/APAP/CAFEIN 50/325/40MG TABLET. PO PRN ×2 (14:15→20:15)
--- NOTE | 2016-09-29 14:26 | PDOC ---
PROGRESS NOTES Chief Complaint Chief Complaint 1. intractable headache migraine flare 2. copd stable 3. depression, 4. anxiety d/o 5. HTN 6. nausea, poor po intake History of Present Illness History of Present Illness brain MRI results pending neuro consult, imitrex changed sPRN zofran resume lower dose exedrine, possible caffeine withdrawl sx today . try lidocaine patch for back pain Vitals Vitals Vital Signs Date Time Temp Pulse Resp B/P Pulse Ox O2 Delivery O2 Flow Rate FiO2 09/29/16 11:31 Nasal Cannula 3.0 09/29/16 11:00 98.4 83 20 125/69 96 98.4 Physical Exam General: Alert, Oriented X3, Cooperative, mild distress Heart: Regular rate, Normal S1, Normal S2, No murmurs, Gallops Lungs: Clear Abdomen: Normal bowel sounds, Soft Extremities: No clubbing, No cyanosis Skin: No rashes Labs LABS Laboratory Tests Test 09/28/16 16:25 09/28/16 17:54 09/29/16 04:50 White Blood Count 8.6x10^3/uL (4.0-11.0) 6.4x10^3/uL (4.0-11.0) Red Blood Count 4.73x10^6/uL (3.50-5.40) 4.00x10^6/uL (3.50-5.40) Hemoglobin 13.8g/dL (12.0-15.5) 11.9g/dL (12.0-15.5) Hematocrit 41.7% (36.0-47.0) 35.3% (36.0-47.0) Mean Corpuscular Volume 88fL (79-100) 88fL (79-100) Mean Corpuscular Hemoglobin 29pg (25-35) 30pg (25-35) Mean Corpuscular Hemoglobin Concent 33g/dL (31-37) 34g/dL (31-37) Red Cell Distribution Width 12.9% (11.5-14.5) 12.9% (11.5-14.5) Platelet Count 295x10^3/uL (140-400) 261x10^3/uL (140-400) Neutrophils (%) (Auto) 69% (31-73) 49% (31-73) Lymphocytes (%) (Auto) 18% (24-48) 31% (24-48) Monocytes (%) (Auto) 10% (0-9) 14% (0-9) Eosinophils (%) (Auto) 2% (0-3) 4% (0-3) Basophils (%) (Auto) 1% (0-3) 2% (0-3) Neutrophils # (Auto) 5.9x10^3uL (1.8-7.7) 3.2x10^3uL (1.8-7.7) Lymphocytes # (Auto) 1.5x10^3/uL (1.0-4.8) 2.0x10^3/uL (1.0-4.8) Monocytes # (Auto) 0.9x10^3/uL (0.0-1.1) 0.9x10^3/uL (0.0-1.1) Eosinophils # (Auto) 0.2x10^3/uL (0.0-0.7) 0.2x10^3/uL (0.0-0.7) Basophils # (Auto) 0.1x10^3/uL (0.0-0.2) 0.1x10^3/uL (0.0-0.2) Sodium Level 144mmol/L (136-145) 146mmol/L (136-145) Potassium Level 3.6mmol/L (3.5-5.1) 3.2mmol/L (3.5-5.1) Chloride Level 103mmol/L (98-107) 108mmol/L (98-107) Carbon Dioxide Level 31mmol/L (21-32) 31mmol/L (21-32) Anion Gap 10 (6-14) 7 (6-14) Blood Urea Nitrogen 11mg/dL (7-20) 12mg/dL (7-20) Creatinine 0.8mg/dL (0.6-1.0) 0.8mg/dL (0.6-1.0) Estimated GFR (Cockcroft-Gault) 72.7 72.7 BUN/Creatinine Ratio 14 (6-20) Glucose Level 93mg/dL (70-99) 85mg/dL (70-99) Calcium Level 9.3mg/dL (8.5-10.1) 8.6mg/dL (8.5-10.1) Total Bilirubin 0.4mg/dL (0.2-1.0) Aspartate Amino Transf (AST/SGOT) 21U/L (15-37) Alanine Aminotransferase (ALT/SGPT) 20U/L (14-59) Alkaline Phosphatase 121U/L (46-116) Total Protein 7.6g/dL (6.4-8.2) Albumin 4.1g/dL (3.4-5.0) Albumin/Globulin Ratio 1.2 (1.0-1.7) Urine Collection Type Unknown Urine Color Yellow Urine Clarity Cloudy Urine pH 6.5 Urine Specific [place] 1.015 Urine Protein Negativemg/dL (NEG-TRACE) Urine Glucose (UA) Negativemg/dL (NEG) Urine Ketones (Stick) 15mg/dL (NEG) Urine Blood Negative (NEG) Urine Nitrite Negative (NEG) Urine Bilirubin Negative (NEG) Urine Urobilinogen Dipstick 0.2mg/dL (0.2 mg/dL) Urine Leukocyte Esterase Small (NEG) Urine RBC 0/HPF (0-2) Urine WBC 5-10/HPF (0-4) Urine Squamous Epithelial Cells Few/LPF Urine Bacteria 0/HPF (0-FEW) Urine Mucus Mod/LPF Review of Systems Review of Systems nausea weakness lethargy back pain, localized Assessment and Plan Assessmemt and Plan Problems Medical Problems: (1) Intractable migraine Status: Acute Problems: Comment Review of Relevant I have reviewed the following items emy (where applicable) has been applied. Labs Laboratory Tests Test 09/28/16 16:25 09/28/16 17:54 09/29/16 04:50 White Blood Count 8.6x10^3/uL (4.0-11.0) 6.4x10^3/uL (4.0-11.0) Red Blood Count 4.73x10^6/uL (3.50-5.40) 4.00x10^6/uL (3.50-5.40) Hemoglobin 13.8g/dL (12.0-15.5) 11.9g/dL (12.0-15.5) Hematocrit 41.7% (36.0-47.0) 35.3% (36.0-47.0) Mean Corpuscular Volume 88fL (79-100) 88fL (79-100) Mean Corpuscular Hemoglobin 29pg (25-35) 30pg (25-35) Mean Corpuscular Hemoglobin Concent 33g/dL (31-37) 34g/dL (31-37) Red Cell Distribution Width 12.9% (11.5-14.5) 12.9% (11.5-14.5) Platelet Count 295x10^3/uL (140-400) 261x10^3/uL (140-400) Neutrophils (%) (Auto) 69% (31-73) 49% (31-73) Lymphocytes (%) (Auto) 18% (24-48) 31% (24-48) Monocytes (%) (Auto) 10% (0-9) 14% (0-9) Eosinophils (%) (Auto) 2% (0-3) 4% (0-3) Basophils (%) (Auto) 1% (0-3) 2% (0-3) Neutrophils # (Auto) 5.9x10^3uL (1.8-7.7) 3.2x10^3uL (1.8-7.7) Lymphocytes # (Auto) 1.5x10^3/uL (1.0-4.8) 2.0x10^3/uL (1.0-4.8) Monocytes # (Auto) 0.9x10^3/uL (0.0-1.1) 0.9x10^3/uL (0.0-1.1) Eosinophils # (Auto) 0.2x10^3/uL (0.0-0.7) 0.2x10^3/uL (0.0-0.7) Basophils # (Auto) 0.1x10^3/uL (0.0-0.2) 0.1x10^3/uL (0.0-0.2) Sodium Level 144mmol/L (136-145) 146mmol/L (136-145) Potassium Level 3.6mmol/L (3.5-5.1) 3.2mmol/L (3.5-5.1) Chloride Level 103mmol/L (98-107) 108mmol/L (98-107) Carbon Dioxide Level 31mmol/L (21-32) 31mmol/L (21-32) Anion Gap 10 (6-14) 7 (6-14) Blood Urea Nitrogen 11mg/dL (7-20) 12mg/dL (7-20) Creatinine 0.8mg/dL (0.6-1.0) 0.8mg/dL (0.6-1.0) Estimated GFR (Cockcroft-Gault) 72.7 72.7 BUN/Creatinine Ratio 14 (6-20) Glucose Level 93mg/dL (70-99) 85mg/dL (70-99) Calcium Level 9.3mg/dL (8.5-10.1) 8.6mg/dL (8.5-10.1) Total Bilirubin 0.4mg/dL (0.2-1.0) Aspartate Amino Transf (AST/SGOT) 21U/L (15-37) Alanine Aminotransferase (ALT/SGPT) 20U/L (14-59) Alkaline Phosphatase 121U/L (46-116) Total Protein 7.6g/dL (6.4-8.2) Albumin 4.1g/dL (3.4-5.0) Albumin/Globulin Ratio 1.2 (1.0-1.7) Urine Collection Type Unknown Urine Color Yellow Urine Clarity Cloudy Urine pH 6.5 Urine Specific [place] 1.015 Urine Protein Negativemg/dL (NEG-TRACE) Urine Glucose (UA) Negativemg/dL (NEG) Urine Ketones (Stick) 15mg/dL (NEG) Urine Blood Negative (NEG) Urine Nitrite Negative (NEG) Urine Bilirubin Negative (NEG) Urine Urobilinogen Dipstick 0.2mg/dL (0.2 mg/dL) Urine Leukocyte Esterase Small (NEG) Urine RBC 0/HPF (0-2) Urine WBC 5-10/HPF (0-4) Urine Squamous Epithelial Cells Few/LPF Urine Bacteria 0/HPF (0-FEW) Urine Mucus Mod/LPF Laboratory Tests Test 09/28/16 16:25 09/28/16 17:54 09/29/16 04:50 White Blood Count 8.6x10^3/uL (4.0-11.0) 6.4x10^3/uL (4.0-11.0) Red Blood Count 4.73x10^6/uL (3.50-5.40) 4.00x10^6/uL (3.50-5.40) Hemoglobin 13.8g/dL (12.0-15.5) 11.9g/dL (12.0-15.5) Hematocrit 41.7% (36.0-47.0) 35.3% (36.0-47.0) Mean Corpuscular Volume 88fL (79-100) 88fL (79-100) Mean Corpuscular Hemoglobin 29pg (25-35) 30pg (25-35) Mean Corpuscular Hemoglobin Concent 33g/dL (31-37) 34g/dL (31-37) Red Cell Distribution Width 12.9% (11.5-14.5) 12.9% (11.5-14.5) Platelet Count 295x10^3/uL (140-400) 261x10^3/uL (140-400) Neutrophils (%) (Auto) 69% (31-73) 49% (31-73) Lymphocytes (%) (Auto) 18% (24-48) 31% (24-48) Monocytes (%) (Auto) 10% (0-9) 14% (0-9) Eosinophils (%) (Auto) 2% (0-3) 4% (0-3) Basophils (%) (Auto) 1% (0-3) 2% (0-3) Neutrophils # (Auto) 5.9x10^3uL (1.8-7.7) 3.2x10^3uL (1.8-7.7) Lymphocytes # (Auto) 1.5x10^3/uL (1.0-4.8) 2.0x10^3/uL (1.0-4.8) Monocytes # (Auto) 0.9x10^3/uL (0.0-1.1) 0.9x10^3/uL (0.0-1.1) Eosinophils # (Auto) 0.2x10^3/uL (0.0-0.7) 0.2x10^3/uL (0.0-0.7) Basophils # (Auto) 0.1x10^3/uL (0.0-0.2) 0.1x10^3/uL (0.0-0.2) Sodium Level 144mmol/L (136-145) 146mmol/L (136-145) Potassium Level 3.6mmol/L (3.5-5.1) 3.2mmol/L (3.5-5.1) Chloride Level 103mmol/L (98-107) 108mmol/L (98-107) Carbon Dioxide Level 31mmol/L (21-32) 31mmol/L (21-32) Anion Gap 10 (6-14) 7 (6-14) Blood Urea Nitrogen 11mg/dL (7-20) 12mg/dL (7-20) Creatinine 0.8mg/dL (0.6-1.0) 0.8mg/dL (0.6-1.0) Estimated GFR (Cockcroft-Gault) 72.7 72.7 BUN/Creatinine Ratio 14 (6-20) Glucose Level 93mg/dL (70-99) 85mg/dL (70-99) Calcium Level 9.3mg/dL (8.5-10.1) 8.6mg/dL (8.5-10.1) Total Bilirubin 0.4mg/dL (0.2-1.0) Aspartate Amino Transf (AST/SGOT) 21U/L (15-37) Alanine Aminotransferase (ALT/SGPT) 20U/L (14-59) Alkaline Phosphatase 121U/L (46-116) Total Protein 7.6g/dL (6.4-8.2) Albumin 4.1g/dL (3.4-5.0) Albumin/Globulin Ratio 1.2 (1.0-1.7) Urine Collection Type Unknown Urine Color Yellow Urine Clarity Cloudy Urine pH 6.5 Urine Specific [place] 1.015 Urine Protein Negativemg/dL (NEG-TRACE) Urine Glucose (UA) Negativemg/dL (NEG) Urine Ketones (Stick) 15mg/dL (NEG) Urine Blood Negative (NEG) Urine Nitrite Negative (NEG) Urine Bilirubin Negative (NEG) Urine Urobilinogen Dipstick 0.2mg/dL (0.2 mg/dL) Urine Leukocyte Esterase Small (NEG) Urine RBC 0/HPF (0-2) Urine WBC 5-10/HPF (0-4) Urine Squamous Epithelial Cells Few/LPF Urine Bacteria 0/HPF (0-FEW) Urine Mucus Mod/LPF Medications Current Medications Sodium Chloride (Iv Sodium Chloride 0.9% 1000ml Bag) 1,000 ml @ 1,000 mls/hr Q1H IV Last administered on 09/28/16 16:26; Start 09/28/16 at 15:45; Stop at 16:44; Status DC Prochlorperazine Edisylate (Compazine) 10 mg 1X ONCE IV Last administered on 16:25; Start 09/28/16 at 15:45; Stop 09/28/16 at 15:50; Status DC Diphenhydramine HCl (Benadryl) 25 mg 1X ONCE IVP Last administered on 16:25; Start 09/28/16 at 15:45; Stop 09/28/16 at 15:50; Status DC Acetaminophen (Tylenol) 1,000 mg 1X ONCE PO Last administered on 09/28/16 19: 09; Start 09/28/16 at 18:00; Stop 09/28/16 at 18:01; Status DC Morphine Sulfate 4 mg 1X ONCE IV Last administered on 09/28/16 19:14; Start 09/28/16 at 18:00; Stop 09/28/16 at 18:01; Status DC Buspirone HCl (Buspar) 15 mg BID PO Last administered on 09/29/16 08:43; Start 09/28/16 at 21:00 Albuterol Sulfate (Ventolin Neb Soln) 2.5 mg PRN Q4HRS PRN NEB SHORTNESS OF BREATH; Start 09/28/16 at 18:30 Non-Formulary Medication 2 puff BID IH ; Start 09/28/16 at 21:00; Status UNV Ondansetron HCl (Zofran) 4 mg PRN Q6HRS PRN IV NAUSEA/VOMITING; Start 09/28/16 at 18:15 Morphine Sulfate 1 mg PRN Q1HR PRN IV PAIN; Start 09/28/16 at 18:15 Acetaminophen/ Hydrocodone Bitart (Lortab 5/325) 1 tab PRN Q4HRS PRN PO MILD PAIN Last administered on 09/29/16 08:42; Start 09/28/16 at 18:15 Acetaminophen (Tylenol) 650 mg PRN Q6HRS PRN PO MILD PAIN / TEMP; Start at 18:15 Enoxaparin Sodium (Lovenox 40mg Syringe) 40 mg Q24H SQ Last administered on 20:56; Start 09/28/16 at 21:00 Budesonide (Pulmicort) 0.5 mg RTBID NEB Last administered on 09/28/16 20:12; Start 09/28/16 at 20:00 Albuterol Sulfate (Ventolin Neb Soln) 2.5 mg RTQID NEB Last administered on 11:30; Start 09/28/16 at 20:00 Sumatriptan Succinate (Imitrex) 6 mg 1X ONCE SQ Last administered on 19:20; Start 09/28/16 at 19:00; Stop 09/28/16 at 19:01; Status DC Sumatriptan Succinate (Imitrex) 50 mg PRN QID PRN PO MIGRAINE HEADACHE Last administered on 09/29/16 05:26; Start 09/28/16 at 18:30 Metoclopramide HCl (Reglan) 10 mg 1X ONCE IV Last administered on 09/28/16 19 :11; Start 09/28/16 at 19:00; Stop 09/28/16 at 19:01; Status DC Amlodipine Besylate (Norvasc) 5 mg DAILY PO Last administered on 09/29/16 08: 43; Start 09/29/16 at 09:00 Hydralazine HCl (Apresoline) 10 mg PRN Q4HRS PRN IVP ELEVATED BP, SEE COMMENTS ; Start 09/28/16 at 18:30 Enoxaparin Sodium (Lovenox 40mg Syringe) 40 mg DAILY SQ ; Start 09/29/16 at 09: 00; Status UNV Potassium Chloride (Klor-Con) 40 meq 1X ONCE PO Last administered on 14:09; Start 09/29/16 at 13:15; Stop 09/29/16 at 13:16; Status DC Lidocaine (Lidoderm) 1 patch DAILY TD Last administered on 09/29/16 14:10; Start 09/29/16 at 13:15 Acetaminophen/ Butalbital/ Caffeine (Fioricet) 1 tab PRN Q6HRS PRN PO MIGRAINE HEADACHE Last administered on 09/29/16t 14:15; Start 09/29/16 at 13:15 Acetaminophen/ Aspirin/Caffeine (Excedrin Migraine) 1 tab PRN Q6HRS PRN PO MIGRAINE HEADACHE; Start 09/29/16 at 13:30 Ondansetron HCl (Zofran) 4 mg PRN Q8HRS PRN IV NAUSEA/VOMITING; Start 09/29/16 at 13:30 Active Scripts Active Reported Symbicort 160-4.5 Mcg Inhaler (Budesonide/Formoterol Fumarate) 10.2 Gm Hfa.aer.ad 2 Puff IH BID Proair Hfa Inhaler (Albuterol Sulfate) 8.5 Gm Hfa.aer.ad 2 Puff IH PRN Q4-6HRS [Brintellix ] 10 Mg PO BID Buspirone Hcl 5 Mg Tablet 1 Tab PO BID Vitals/I & O Vital Sign - Last 24 Hours 09/28/16 09/28/16 09/28/16 09/28/16 14:50 15:00 15:30 16:30 Temp 98.4 98.4 Pulse 91 83 87 94 Resp 22 16 19 19 B/P 122/79 125/65 138/78 136/69 Pulse Ox 98 99 98 98 O2 Delivery Room Air Nasal Cannula O2 Flow Rate 3 09/28/16 09/28/16 09/28/16 09/28/16 17:00 17:30 19:00 19:14 Pulse 94 94 87 Resp 16 15 15 B/P 152/86 137/71 146/78 Pulse Ox 100 100 96 97 O2 Delivery Nasal Cannula Nasal Cannula O2 Flow Rate 3 3.0 09/28/16 09/28/16 09/28/16 09/28/16 20:15 20:20 20:20 21:12 Temp 99.5 99.5 Pulse 94 Resp 18 B/P 128/61 Pulse Ox 96 96 96 O2 Delivery Nasal Cannula Nasal Cannula Room Air Nasal Cannula O2 Flow Rate 2.0 2.0 3.0 2.0 09/28/16 09/29/16 09/29/16 09/29/16 23:03 03:01 07:00 07:15 Temp 99.1 98.1 97.9 99.1 98.1 97.9 Pulse 85 69 88 Resp 18 18 22 B/P 99/48 98/49 127/59 Pulse Ox 99 97 96 O2 Delivery Nasal Cannula Nasal Cannula Nasal Cannula Nasal Cannula O2 Flow Rate 3.0 3.0 3.0 3.0 09/29/16 09/29/16 09/29/16 09/29/16 07:18 08:42 08:43 09:55 Pulse 88 B/P 127/59 Pulse Ox 97 O2 Delivery Nasal Cannula Nasal Cannula Nasal Cannula O2 Flow Rate 3.0 3.0 3.0 09/29/16 09/29/16 11:00 11:31 Temp 98.4 98.4 Pulse 83 Resp 20 B/P 125/69 Pulse Ox 96 O2 Delivery Nasal Cannula Nasal Cannula O2 Flow Rate 3.0 3.0 Intake and Output 09/28/16 09/28/16 09/29/16 15:00 23:00 07:00 Intake Total 100 ml Balance 100 ml CRISELDA CHEUNG MD Sep 29, 2016 14:26
[2016-09-29 15:00] VITALS: BP 104/54
[2016-09-29 19:00] VITALS: BP 114/63
[2016-09-29] MEDS: ENOXAPARIN 40 MG/0.4 ML DISP.SYRIN. SQ SCH (21:09)
[2016-09-29 23:00] VITALS: BP 110/55
[2016-09-30] MEDS: BUTALB/APAP/CAFEIN 50/325/40MG TABLET. PO PRN ×4 (02:36→20:47)
[2016-09-30 02:58] VITALS: BP 123/62
[2016-09-30] MEDS: ALBUTEROL SULFATE 2.5 MG/3 ML NEBU. NEB SCH ×4 (06:58→19:54)
[2016-09-30] MEDS: BUDESONIDE 0.5 MG/2 ML NEBU NEB SCH ×2 (06:58→19:54)
[2016-09-30 07:00] VITALS: BP 125/70
[2016-09-30] MEDS: AMLODIPINE BESYLATE 5 MG TABLET PO SCH (08:17)
[2016-09-30] MEDS: LIDOCAINE (700MG/PATCH) PATCH. TD SCH (08:17)
[2016-09-30] MEDS: busPIRone 5 MG TABLET. PO SCH ×2 (08:17→20:48)
[2016-09-30 10:59] VITALS: BP 113/69
--- NOTE | 2016-09-30 11:41 | PDOC ---
PROGRESS NOTES Assessment Problems Medical Problems: (1) Intractable migraine Status: Acute Migraine headache New history below shows that there is also medication overuse headache. Plan I told the patient that she cannot use the Excedrin more than 2 days a week. I will start topiramate 25 mg HS times one week, 50 mg HS times one week, 75 mg HS times one week, and then 100 mg HS after that. Aim for discharge tomorrow Subjective I spoke to the patient's daughter that tells me the patient is taking 4-6 Excedrin every day. This is an absolute contradistinction to what the patient told me yesterday that she had headaches only every 3 years. Objective Vital Signs Date Time Temp Pulse Resp B/P Pulse Ox O2 Delivery O2 Flow Rate FiO2 09/30/16 10:59 98.2 87 18 113/69 95 Nasal Cannula 2.0 98.2 Intake and Output 09/30/16 07:00 Intake Total 360 ml Output Total 25 ml Balance 335 ml Intake Oral 360 ml Output Emesis 25 ml # Voids 5 PHYSICAL EXAM Sleepy, alerts easily. Oriented to time, place and person. PERRL. EOMI. CN: no focal findings. Muscle tone: normal. Muscle strength: 5/5 DTR:2+ Plantar reflex: flexor Gait: not examined in bed. Sensory exam: no abnormal findings. No cerebellar signs elicited. Review of Relevant I have reviewed the following items emy (where applicable) has been applied. Labs Laboratory Tests Test 09/28/16 16:25 09/28/16 17:54 09/29/16 04:50 White Blood Count 8.6x10^3/uL (4.0-11.0) 6.4x10^3/uL (4.0-11.0) Red Blood Count 4.73x10^6/uL (3.50-5.40) 4.00x10^6/uL (3.50-5.40) Hemoglobin 13.8g/dL (12.0-15.5) 11.9g/dL (12.0-15.5) Hematocrit 41.7% (36.0-47.0) 35.3% (36.0-47.0) Mean Corpuscular Volume 88fL (79-100) 88fL (79-100) Mean Corpuscular Hemoglobin 29pg (25-35) 30pg (25-35) Mean Corpuscular Hemoglobin Concent 33g/dL (31-37) 34g/dL (31-37) Red Cell Distribution Width 12.9% (11.5-14.5) 12.9% (11.5-14.5) Platelet Count 295x10^3/uL (140-400) 261x10^3/uL (140-400) Neutrophils (%) (Auto) 69% (31-73) 49% (31-73) Lymphocytes (%) (Auto) 18% (24-48) 31% (24-48) Monocytes (%) (Auto) 10% (0-9) 14% (0-9) Eosinophils (%) (Auto) 2% (0-3) 4% (0-3) Basophils (%) (Auto) 1% (0-3) 2% (0-3) Neutrophils # (Auto) 5.9x10^3uL (1.8-7.7) 3.2x10^3uL (1.8-7.7) Lymphocytes # (Auto) 1.5x10^3/uL (1.0-4.8) 2.0x10^3/uL (1.0-4.8) Monocytes # (Auto) 0.9x10^3/uL (0.0-1.1) 0.9x10^3/uL (0.0-1.1) Eosinophils # (Auto) 0.2x10^3/uL (0.0-0.7) 0.2x10^3/uL (0.0-0.7) Basophils # (Auto) 0.1x10^3/uL (0.0-0.2) 0.1x10^3/uL (0.0-0.2) Sodium Level 144mmol/L (136-145) 146mmol/L (136-145) Potassium Level 3.6mmol/L (3.5-5.1) 3.2mmol/L (3.5-5.1) Chloride Level 103mmol/L (98-107) 108mmol/L (98-107) Carbon Dioxide Level 31mmol/L (21-32) 31mmol/L (21-32) Anion Gap 10 (6-14) 7 (6-14) Blood Urea Nitrogen 11mg/dL (7-20) 12mg/dL (7-20) Creatinine 0.8mg/dL (0.6-1.0) 0.8mg/dL (0.6-1.0) Estimated GFR (Cockcroft-Gault) 72.7 72.7 BUN/Creatinine Ratio 14 (6-20) Glucose Level 93mg/dL (70-99) 85mg/dL (70-99) Calcium Level 9.3mg/dL (8.5-10.1) 8.6mg/dL (8.5-10.1) Total Bilirubin 0.4mg/dL (0.2-1.0) Aspartate Amino Transf (AST/SGOT) 21U/L (15-37) Alanine Aminotransferase (ALT/SGPT) 20U/L (14-59) Alkaline Phosphatase 121U/L (46-116) Total Protein 7.6g/dL (6.4-8.2) Albumin 4.1g/dL (3.4-5.0) Albumin/Globulin Ratio 1.2 (1.0-1.7) Urine Collection Type Unknown Urine Color Yellow Urine Clarity Cloudy Urine pH 6.5 Urine Specific [place] 1.015 Urine Protein Negativemg/dL (NEG-TRACE) Urine Glucose (UA) Negativemg/dL (NEG) Urine Ketones (Stick) 15mg/dL (NEG) Urine Blood Negative (NEG) Urine Nitrite Negative (NEG) Urine Bilirubin Negative (NEG) Urine Urobilinogen Dipstick 0.2mg/dL (0.2 mg/dL) Urine Leukocyte Esterase Small (NEG) Urine RBC 0/HPF (0-2) Urine WBC 5-10/HPF (0-4) Urine Squamous Epithelial Cells Few/LPF Urine Bacteria 0/HPF (0-FEW) Urine Mucus Mod/LPF Microbiology 09/28/16 Blood Culture - Preliminary, Resulted NO GROWTH AFTER 1 DAY 09/28/16 Urine Culture - Preliminary, Resulted 09/28/16 Urine Culture Result 1 (BACILIO) - Preliminary, Resulted Medications Current Medications Sodium Chloride (Iv Sodium Chloride 0.9% 1000ml Bag) 1,000 ml @ 1,000 mls/hr Q1H IV Last administered on 09/28/16t 16:26; Start 09/28/16 at 15:45; Stop at 16:44; Status DC Prochlorperazine Edisylate (Compazine) 10 mg 1X ONCE IV Last administered on 16:25; Start 09/28/16 at 15:45; Stop 09/28/16 at 15:50; Status DC Diphenhydramine HCl (Benadryl) 25 mg 1X ONCE IVP Last administered on 16:25; Start 09/28/16 at 15:45; Stop 09/28/16 at 15:50; Status DC Acetaminophen (Tylenol) 1,000 mg 1X ONCE PO Last administered on 09/28/16 19: 09; Start 09/28/16 at 18:00; Stop 09/28/16 at 18:01; Status DC Morphine Sulfate 4 mg 1X ONCE IV Last administered on 09/28/16 19:14; Start 09/28/16 at 18:00; Stop 09/28/16 at 18:01; Status DC Buspirone HCl (Buspar) 15 mg BID PO Last administered on 09/30/16 08:17; Start 09/28/16 at 21:00 Albuterol Sulfate (Ventolin Neb Soln) 2.5 mg PRN Q4HRS PRN NEB SHORTNESS OF BREATH; Start 09/28/16 at 18:30 Non-Formulary Medication 2 puff BID IH ; Start 09/28/16 at 21:00; Status UNV Ondansetron HCl (Zofran) 4 mg PRN Q6HRS PRN IV NAUSEA/VOMITING; Start 09/28/16 at 18:15 Morphine Sulfate 1 mg PRN Q1HR PRN IV PAIN; Start 09/28/16 at 18:15 Acetaminophen/ Hydrocodone Bitart (Lortab 5/325) 1 tab PRN Q4HRS PRN PO MILD PAIN Last administered on 09/29/16 08:42; Start 09/28/16 at 18:15 Acetaminophen (Tylenol) 650 mg PRN Q6HRS PRN PO MILD PAIN / TEMP; Start at 18:15 Enoxaparin Sodium (Lovenox 40mg Syringe) 40 mg Q24H SQ Last administered on 21:09; Start 09/28/16 at 21:00 Budesonide (Pulmicort) 0.5 mg RTBID NEB Last administered on 09/30/16 06:58; Start 09/28/16 at 20:00 Albuterol Sulfate (Ventolin Neb Soln) 2.5 mg RTQID NEB Last administered on 10:43; Start 09/28/16 at 20:00 Sumatriptan Succinate (Imitrex) 6 mg 1X ONCE SQ Last administered on 19:20; Start 09/28/16 at 19:00; Stop 09/28/16 at 19:01; Status DC Sumatriptan Succinate (Imitrex) 50 mg PRN QID PRN PO MIGRAINE HEADACHE Last administered on 09/29/16 19:54; Start 09/28/16 at 18:30 Metoclopramide HCl (Reglan) 10 mg 1X ONCE IV Last administered on 09/28/16 19 :11; Start 09/28/16 at 19:00; Stop 09/28/16 at 19:01; Status DC Amlodipine Besylate (Norvasc) 5 mg DAILY PO Last administered on 09/30/16 08: 17; Start 09/29/16 at 09:00 Hydralazine HCl (Apresoline) 10 mg PRN Q4HRS PRN IVP ELEVATED BP, SEE COMMENTS ; Start 09/28/16 at 18:30 Enoxaparin Sodium (Lovenox 40mg Syringe) 40 mg DAILY SQ ; Start 09/29/16 at 09: 00; Status UNV Potassium Chloride (Klor-Con) 40 meq 1X ONCE PO Last administered on 14:09; Start 09/29/16 at 13:15; Stop 09/29/16 at 13:16; Status DC Lidocaine (Lidoderm) 1 patch DAILY TD Last administered on 09/30/16 08:17; Start 09/29/16 at 13:15 Acetaminophen/ Butalbital/ Caffeine (Fioricet) 1 tab PRN Q6HRS PRN PO MIGRAINE HEADACHE Last administered on 09/30/16 09:03; Start 09/29/16 at 13:15 Acetaminophen/ Aspirin/Caffeine (Excedrin Migraine) 1 tab PRN Q6HRS PRN PO MIGRAINE HEADACHE; Start 09/29/16 at 13:30 Ondansetron HCl (Zofran) 4 mg PRN Q8HRS PRN IV NAUSEA/VOMITING; Start 09/29/16 at 13:30 Topiramate (Topamax) 25 mg QHS PO ; Start 09/30/16 at 21:00 Active Scripts Active Reported Symbicort 160-4.5 Mcg Inhaler (Budesonide/Formoterol Fumarate) 10.2 Gm Hfa.aer.ad 2 Puff IH BID Proair Hfa Inhaler (Albuterol Sulfate) 8.5 Gm Hfa.aer.ad 2 Puff IH PRN Q4-6HRS [Brintellix ] 10 Mg PO BID Buspirone Hcl 5 Mg Tablet 1 Tab PO BID Vitals/I & O Vital Sign - Last 24 Hours 09/29/16 09/29/16 09/29/16 09/29/16 15:00 19:00 19:50 20:22 Temp 97.9 99.1 97.9 99.1 Pulse 86 87 Resp 20 B/P 104/54 114/63 Pulse Ox 97 95 O2 Delivery Nasal Cannula Nasal Cannula Nasal Cannula Nasal Cannula O2 Flow Rate 3.0 3.0 3.0 3.0 09/29/16 09/30/16 09/30/16 09/30/16 23:00 02:58 07:00 07:00 Temp 99.0 98.7 99.0 98.7 Pulse 80 79 Resp 20 B/P 110/55 123/62 Pulse Ox 98 96 96 O2 Delivery Nasal Cannula Nasal Cannula Nasal Cannula Nasal Cannula O2 Flow Rate 3.0 3.0 2.0 2.0 09/30/16 09/30/16 09/30/16 09/30/16 07:00 08:17 10:46 10:59 Temp 98.2 98.2 98.2 98.2 Pulse 85 85 87 Resp 18 B/P 125/70 125/70 113/69 Pulse Ox 98 95 O2 Delivery Nasal Cannula Nasal Cannula Nasal Cannula O2 Flow Rate 3.0 2.0 2.0 Intake and Output 09/29/16 09/29/16 09/30/16 15:00 23:00 07:00 Intake Total 360 ml Output Total 25 ml Balance -25 ml 360 ml Images Brain MRI yesterday: Comparison is made to the patient's CT scan of the head dated 09/28/2016. There is mild generalized parenchymal atrophy. Patchy and several small focal areas of abnormally increased signal intensity are seen within the periventricular and subcortical white matter of both cerebral hemispheres on the FLAIR and T2 weighted images consistent most likely with areas of mild small vessel ischemic disease. No acute parenchymal abnormality is seen. There is no MRI evidence of acute ischemia/infarction. No extra-axial fluid collection is seen. Mild mucosal thickening is seen scattered throughout the paranasal sinuses. Normal flow voids are seen within the major vascular structures surrounding the brain parenchyma. IMPRESSION No acute parenchymal abnormality is seen. NATHALY CM MD Sep 30, 2016 11:41
--- NOTE | 2016-09-30 13:12 | PDOC ---
PROGRESS NOTES Chief Complaint Chief Complaint 1. intractable headache migraine flare - better 2. copd stable 3. depression, 4. anxiety d/o 5. HTN 6. nausea, poor po intake 7. weakness, head pressure History of Present Illness History of Present Illness brain MRI looks normal PRN zofran cont fiorcet . try lidocaine patch for back pain Vitals Vitals Vital Signs Date Time Temp Pulse Resp B/P Pulse Ox O2 Delivery O2 Flow Rate FiO2 09/30/16 10:59 98.2 87 18 113/69 95 Nasal Cannula 2.0 98.2 Physical Exam Physical Exam does not open eyes for my exam General: Alert, Oriented X3, Cooperative, No acute distress Heart: Regular rate, Normal S1, Normal S2, No murmurs, Gallops Lungs: Clear Abdomen: Normal bowel sounds, Soft Extremities: No clubbing, No cyanosis Skin: No rashes Review of Systems Review of Systems nausea head pressure Assessment and Plan Assessmemt and Plan Problems Medical Problems: (1) Intractable migraine Status: Acute Problems: Comment Review of Relevant I have reviewed the following items emy (where applicable) has been applied. Labs Laboratory Tests Test 09/28/16 16:25 09/28/16 17:54 09/29/16 04:50 White Blood Count 8.6x10^3/uL (4.0-11.0) 6.4x10^3/uL (4.0-11.0) Red Blood Count 4.73x10^6/uL (3.50-5.40) 4.00x10^6/uL (3.50-5.40) Hemoglobin 13.8g/dL (12.0-15.5) 11.9g/dL (12.0-15.5) Hematocrit 41.7% (36.0-47.0) 35.3% (36.0-47.0) Mean Corpuscular Volume 88fL (79-100) 88fL (79-100) Mean Corpuscular Hemoglobin 29pg (25-35) 30pg (25-35) Mean Corpuscular Hemoglobin Concent 33g/dL (31-37) 34g/dL (31-37) Red Cell Distribution Width 12.9% (11.5-14.5) 12.9% (11.5-14.5) Platelet Count 295x10^3/uL (140-400) 261x10^3/uL (140-400) Neutrophils (%) (Auto) 69% (31-73) 49% (31-73) Lymphocytes (%) (Auto) 18% (24-48) 31% (24-48) Monocytes (%) (Auto) 10% (0-9) 14% (0-9) Eosinophils (%) (Auto) 2% (0-3) 4% (0-3) Basophils (%) (Auto) 1% (0-3) 2% (0-3) Neutrophils # (Auto) 5.9x10^3uL (1.8-7.7) 3.2x10^3uL (1.8-7.7) Lymphocytes # (Auto) 1.5x10^3/uL (1.0-4.8) 2.0x10^3/uL (1.0-4.8) Monocytes # (Auto) 0.9x10^3/uL (0.0-1.1) 0.9x10^3/uL (0.0-1.1) Eosinophils # (Auto) 0.2x10^3/uL (0.0-0.7) 0.2x10^3/uL (0.0-0.7) Basophils # (Auto) 0.1x10^3/uL (0.0-0.2) 0.1x10^3/uL (0.0-0.2) Sodium Level 144mmol/L (136-145) 146mmol/L (136-145) Potassium Level 3.6mmol/L (3.5-5.1) 3.2mmol/L (3.5-5.1) Chloride Level 103mmol/L (98-107) 108mmol/L (98-107) Carbon Dioxide Level 31mmol/L (21-32) 31mmol/L (21-32) Anion Gap 10 (6-14) 7 (6-14) Blood Urea Nitrogen 11mg/dL (7-20) 12mg/dL (7-20) Creatinine 0.8mg/dL (0.6-1.0) 0.8mg/dL (0.6-1.0) Estimated GFR (Cockcroft-Gault) 72.7 72.7 BUN/Creatinine Ratio 14 (6-20) Glucose Level 93mg/dL (70-99) 85mg/dL (70-99) Calcium Level 9.3mg/dL (8.5-10.1) 8.6mg/dL (8.5-10.1) Total Bilirubin 0.4mg/dL (0.2-1.0) Aspartate Amino Transf (AST/SGOT) 21U/L (15-37) Alanine Aminotransferase (ALT/SGPT) 20U/L (14-59) Alkaline Phosphatase 121U/L (46-116) Total Protein 7.6g/dL (6.4-8.2) Albumin 4.1g/dL (3.4-5.0) Albumin/Globulin Ratio 1.2 (1.0-1.7) Urine Collection Type Unknown Urine Color Yellow Urine Clarity Cloudy Urine pH 6.5 Urine Specific [place] 1.015 Urine Protein Negativemg/dL (NEG-TRACE) Urine Glucose (UA) Negativemg/dL (NEG) Urine Ketones (Stick) 15mg/dL (NEG) Urine Blood Negative (NEG) Urine Nitrite Negative (NEG) Urine Bilirubin Negative (NEG) Urine Urobilinogen Dipstick 0.2mg/dL (0.2 mg/dL) Urine Leukocyte Esterase Small (NEG) Urine RBC 0/HPF (0-2) Urine WBC 5-10/HPF (0-4) Urine Squamous Epithelial Cells Few/LPF Urine Bacteria 0/HPF (0-FEW) Urine Mucus Mod/LPF Microbiology 09/28/16 Blood Culture - Preliminary, Resulted NO GROWTH AFTER 1 DAY 09/28/16 Urine Culture - Preliminary, Resulted 09/28/16 Urine Culture Result 1 (BACILIO) - Preliminary, Resulted Medications Current Medications Sodium Chloride (Iv Sodium Chloride 0.9% 1000ml Bag) 1,000 ml @ 1,000 mls/hr Q1H IV Last administered on 09/28/16 16:26; Start 09/28/16 at 15:45; Stop at 16:44; Status DC Prochlorperazine Edisylate (Compazine) 10 mg 1X ONCE IV Last administered on 16:25; Start 09/28/16 at 15:45; Stop 09/28/16 at 15:50; Status DC Diphenhydramine HCl (Benadryl) 25 mg 1X ONCE IVP Last administered on 16:25; Start 09/28/16 at 15:45; Stop 09/28/16 at 15:50; Status DC Acetaminophen (Tylenol) 1,000 mg 1X ONCE PO Last administered on 09/28/16 19: 09; Start 09/28/16 at 18:00; Stop 09/28/16 at 18:01; Status DC Morphine Sulfate 4 mg 1X ONCE IV Last administered on 09/28/16 19:14; Start 09/28/16 at 18:00; Stop 09/28/16 at 18:01; Status DC Buspirone HCl (Buspar) 15 mg BID PO Last administered on 09/30/16 08:17; Start 09/28/16 at 21:00 Albuterol Sulfate (Ventolin Neb Soln) 2.5 mg PRN Q4HRS PRN NEB SHORTNESS OF BREATH; Start 09/28/16 at 18:30 Non-Formulary Medication 2 puff BID IH ; Start 09/28/16 at 21:00; Status UNV Ondansetron HCl (Zofran) 4 mg PRN Q6HRS PRN IV NAUSEA/VOMITING; Start 09/28/16 at 18:15 Morphine Sulfate 1 mg PRN Q1HR PRN IV PAIN; Start 09/28/16 at 18:15 Acetaminophen/ Hydrocodone Bitart (Lortab 5/325) 1 tab PRN Q4HRS PRN PO MILD PAIN Last administered on 09/29/16 08:42; Start 09/28/16 at 18:15 Acetaminophen (Tylenol) 650 mg PRN Q6HRS PRN PO MILD PAIN / TEMP; Start at 18:15 Enoxaparin Sodium (Lovenox 40mg Syringe) 40 mg Q24H SQ Last administered on 21:09; Start 09/28/16 at 21:00 Budesonide (Pulmicort) 0.5 mg RTBID NEB Last administered on 09/30/16 06:58; Start 09/28/16 at 20:00 Albuterol Sulfate (Ventolin Neb Soln) 2.5 mg RTQID NEB Last administered on 10:43; Start 09/28/16 at 20:00 Sumatriptan Succinate (Imitrex) 6 mg 1X ONCE SQ Last administered on 19:20; Start 09/28/16 at 19:00; Stop 09/28/16 at 19:01; Status DC Sumatriptan Succinate (Imitrex) 50 mg PRN QID PRN PO MIGRAINE HEADACHE Last administered on 09/29/16 19:54; Start 09/28/16 at 18:30 Metoclopramide HCl (Reglan) 10 mg 1X ONCE IV Last administered on 09/28/16 19 :11; Start 09/28/16 at 19:00; Stop 09/28/16 at 19:01; Status DC Amlodipine Besylate (Norvasc) 5 mg DAILY PO Last administered on 09/30/16 08: 17; Start 09/29/16 at 09:00 Hydralazine HCl (Apresoline) 10 mg PRN Q4HRS PRN IVP ELEVATED BP, SEE COMMENTS ; Start 09/28/16 at 18:30 Enoxaparin Sodium (Lovenox 40mg Syringe) 40 mg DAILY SQ ; Start 09/29/16 at 09: 00; Status UNV Potassium Chloride (Klor-Con) 40 meq 1X ONCE PO Last administered on 14:09; Start 09/29/16 at 13:15; Stop 09/29/16 at 13:16; Status DC Lidocaine (Lidoderm) 1 patch DAILY TD Last administered on 09/30/16 08:17; Start 09/29/16 at 13:15 Acetaminophen/ Butalbital/ Caffeine (Fioricet) 1 tab PRN Q6HRS PRN PO MIGRAINE HEADACHE Last administered on 09/30/16 09:03; Start 09/29/16 at 13:15 Acetaminophen/ Aspirin/Caffeine (Excedrin Migraine) 1 tab PRN Q6HRS PRN PO MIGRAINE HEADACHE; Start 09/29/16 at 13:30 Ondansetron HCl (Zofran) 4 mg PRN Q8HRS PRN IV NAUSEA/VOMITING; Start 09/29/16 at 13:30 Topiramate (Topamax) 25 mg QHS PO ; Start 09/30/16 at 21:00 Active Scripts Active Reported Symbicort 160-4.5 Mcg Inhaler (Budesonide/Formoterol Fumarate) 10.2 Gm Hfa.aer.ad 2 Puff IH BID Proair Hfa Inhaler (Albuterol Sulfate) 8.5 Gm Hfa.aer.ad 2 Puff IH PRN Q4-6HRS [Brintellix ] 10 Mg PO BID Buspirone Hcl 5 Mg Tablet 1 Tab PO BID Vitals/I & O Vital Sign - Last 24 Hours 09/29/16 09/29/16 09/29/16 09/29/16 15:00 19:00 19:50 20:22 Temp 97.9 99.1 97.9 99.1 Pulse 86 87 Resp 20 20 B/P 104/54 114/63 Pulse Ox 97 95 O2 Delivery Nasal Cannula Nasal Cannula Nasal Cannula Nasal Cannula O2 Flow Rate 3.0 3.0 3.0 3.0 09/29/16 09/30/16 09/30/16 09/30/16 23:00 02:58 07:00 07:00 Temp 99.0 98.7 99.0 98.7 Pulse 80 79 Resp 20 B/P 110/55 123/62 Pulse Ox 98 96 96 O2 Delivery Nasal Cannula Nasal Cannula Nasal Cannula Nasal Cannula O2 Flow Rate 3.0 3.0 2.0 2.0 09/30/16 09/30/16 09/30/16 09/30/16 07:00 08:17 10:46 10:59 Temp 98.2 98.2 98.2 98.2 Pulse 85 85 87 Resp 18 18 B/P 125/70 125/70 113/69 Pulse Ox 98 95 O2 Delivery Nasal Cannula Nasal Cannula Nasal Cannula O2 Flow Rate 3.0 2.0 2.0 Intake and Output 09/29/16 09/29/16 09/30/16 15:00 23:00 07:00 Intake Total 360 ml Output Total 25 ml Balance -25 ml 360 ml CRISELDA CHEUNG MD Sep 30, 2016 13:12
[2016-09-30 15:00] VITALS: BP 115/62
[2016-09-30] MEDS: SUMATRIPTAN SUCCINATE 25 MG TABLET. PO PRN (18:45)
[2016-09-30 19:30] VITALS: BP 110/66
[2016-09-30] MEDS: ENOXAPARIN 40 MG/0.4 ML DISP.SYRIN. SQ SCH (20:48)
[2016-09-30] MEDS ORDERED: TOPIRAMATE 25 MG TABLET. PO SCH (21:00)
[2016-09-30 23:16] VITALS: BP 108/66
[2016-10-01 03:20] VITALS: BP 112/64
[2016-10-01 07:00] VITALS: BP 117/60
[2016-10-01] MEDS: BUDESONIDE 0.5 MG/2 ML NEBU NEB SCH (08:16)
[2016-10-01] MEDS: ALBUTEROL SULFATE 2.5 MG/3 ML NEBU. NEB SCH ×2 (08:16→11:30)
[2016-10-01] MEDS: busPIRone 5 MG TABLET. PO SCH (08:22)
[2016-10-01] MEDS: AMLODIPINE BESYLATE 5 MG TABLET PO SCH (08:22)
[2016-10-01] MEDS: SUMATRIPTAN SUCCINATE 25 MG TABLET. PO PRN (08:23)
[2016-10-01] MEDS: LIDOCAINE (700MG/PATCH) PATCH. TD SCH (08:23)
[2016-10-01] MEDS ORDERED: POTASSIUM CHLORIDE 20 MEQ TABLET.ER. PO ONE (10:00)
[2016-10-01] MEDS ORDERED: TOPI100T39 PO (10:04)
[2016-10-01] MEDS ORDERED: BUTA1TAB23 PO (10:04)
[2016-10-01] MEDS ORDERED: TOPI25TA32 PO (10:04)
[2016-10-01] MEDS ORDERED: SUMA25TA3 PO (10:04)
[2016-10-01] MEDS ORDERED: AMLO2.5T2 PO (10:04)
--- NOTE | 2016-10-01 10:43 | PDOC ---
PROGRESS NOTES Assessment Problems Medical Problems: (1) Intractable migraine Status: Acute Migraine headache, 10/19 now Medication overuse headache. Plan Okay for discharge Patient to try for a 2 week analgesic-free interval, than can use Excedrin more than 2 days a week. Topiramate 25 mg HS times one week, 50 mg HS times one week, 75 mg HS times one week, and then 100 mg HS after that. Followup with me in 4 weeks Subjective Headache 10/19 Objective Vital Signs Date Time Temp Pulse Resp B/P Pulse Ox O2 Delivery O2 Flow Rate FiO2 10/01/16 08:22 97 117/60 10/01/16 08:17 98 Nasal Cannula 2.0 10/01/16 07:00 98.1 14 98.1 Intake and Output 10/01/16 07:00 Intake Total 420 ml Balance 420 ml Intake Oral 420 ml # Voids 4 PHYSICAL EXAM Alert. Oriented to time, place and person. PERRL. EOMI. CN: no focal findings. Muscle tone: normal. Muscle strength: 5/5 DTR:2+ Plantar reflex: flexor Gait: not examined in bed. Sensory exam: no abnormal findings. No cerebellar signs elicited. Review of Relevant I have reviewed the following items emy (where applicable) has been applied. Labs Microbiology 09/28/16 Blood Culture - Preliminary, Resulted NO GROWTH AFTER 2 DAYS 09/28/16 Urine Culture - Final, Complete 09/28/16 Urine Culture Result 1 (BACILIO) - Final, Complete Medications Current Medications Sodium Chloride (Iv Sodium Chloride 0.9% 1000ml Bag) 1,000 ml @ 1,000 mls/hr Q1H IV Last administered on 09/28/16 16:26; Start 09/28/16 at 15:45; Stop at 16:44; Status DC Prochlorperazine Edisylate (Compazine) 10 mg 1X ONCE IV Last administered on 16:25; Start 09/28/16 at 15:45; Stop 09/28/16 at 15:50; Status DC Diphenhydramine HCl (Benadryl) 25 mg 1X ONCE IVP Last administered on 16:25; Start 09/28/16 at 15:45; Stop 09/28/16 at 15:50; Status DC Acetaminophen (Tylenol) 1,000 mg 1X ONCE PO Last administered on 09/28/16 19: 09; Start 09/28/16 at 18:00; Stop 09/28/16 at 18:01; Status DC Morphine Sulfate 4 mg 1X ONCE IV Last administered on 09/28/16 19:14; Start 09/28/16 at 18:00; Stop 09/28/16 at 18:01; Status DC Buspirone HCl (Buspar) 15 mg BID PO Last administered on 10/01/16 08:22; Start 09/28/16 at 21:00 Albuterol Sulfate (Ventolin Neb Soln) 2.5 mg PRN Q4HRS PRN NEB SHORTNESS OF BREATH; Start 09/28/16 at 18:30 Non-Formulary Medication 2 puff BID IH ; Start 09/28/16 at 21:00; Status UNV Ondansetron HCl (Zofran) 4 mg PRN Q6HRS PRN IV NAUSEA/VOMITING; Start 09/28/16 at 18:15 Morphine Sulfate 1 mg PRN Q1HR PRN IV PAIN; Start 09/28/16 at 18:15 Acetaminophen/ Hydrocodone Bitart (Lortab 5/325) 1 tab PRN Q4HRS PRN PO MILD PAIN Last administered on 09/29/16 08:42; Start 09/28/16 at 18:15 Acetaminophen (Tylenol) 650 mg PRN Q6HRS PRN PO MILD PAIN / TEMP; Start at 18:15 Enoxaparin Sodium (Lovenox 40mg Syringe) 40 mg Q24H SQ Last administered on 20:48; Start 09/28/16 at 21:00 Budesonide (Pulmicort) 0.5 mg RTBID NEB Last administered on 10/01/16 08:16; Start 09/28/16 at 20:00 Albuterol Sulfate (Ventolin Neb Soln) 2.5 mg RTQID NEB Last administered on 08:16; Start 09/28/16 at 20:00 Sumatriptan Succinate (Imitrex) 6 mg 1X ONCE SQ Last administered on 19:20; Start 09/28/16 at 19:00; Stop 09/28/16 at 19:01; Status DC Sumatriptan Succinate (Imitrex) 50 mg PRN QID PRN PO MIGRAINE HEADACHE Last administered on 10/01/16 08:23; Start 09/28/16 at 18:30 Metoclopramide HCl (Reglan) 10 mg 1X ONCE IV Last administered on 09/28/16 19 :11; Start 09/28/16 at 19:00; Stop 09/28/16 at 19:01; Status DC Amlodipine Besylate (Norvasc) 5 mg DAILY PO Last administered on 10/01/16 08: 22; Start 09/29/16 at 09:00 Hydralazine HCl (Apresoline) 10 mg PRN Q4HRS PRN IVP ELEVATED BP, SEE COMMENTS ; Start 09/28/16 at 18:30 Enoxaparin Sodium (Lovenox 40mg Syringe) 40 mg DAILY SQ ; Start 09/29/16 at 09: 00; Status UNV Potassium Chloride (Klor-Con) 40 meq 1X ONCE PO Last administered on 14:09; Start 09/29/16 at 13:15; Stop 09/29/16 at 13:16; Status DC Lidocaine (Lidoderm) 1 patch DAILY TD Last administered on 09/30/16 08:17; Start 09/29/16 at 13:15 Acetaminophen/ Butalbital/ Caffeine (Fioricet) 1 tab PRN Q6HRS PRN PO MIGRAINE HEADACHE Last administered on 09/30/16 20:47; Start 09/29/16 at 13:15 Acetaminophen/ Aspirin/Caffeine (Excedrin Migraine) 1 tab PRN Q6HRS PRN PO MIGRAINE HEADACHE Last administered on 10/01/16 04:04; Start 09/29/16 at 13:30 Ondansetron HCl (Zofran) 4 mg PRN Q8HRS PRN IV NAUSEA/VOMITING; Start 09/29/16 at 13:30 Topiramate (Topamax) 25 mg QHS PO Last administered on 09/30/16 20:48; Start 09/30/16 at 21:00 Potassium Chloride (Klor-Con) 40 meq 1X ONCE PO ; Start 10/01/16 at 10:00; Stop 10/01/16 at 10:01; Status DC Active Scripts Active [id number]-Hmay 50-325-40 (Butalb/Acetaminophen/Caffeine) 1 Each Tablet 1 Tab PO PRN Q6HRS PRN Imitrex (Sumatriptan Succinate) 25 Mg Tablet 50 Mg PO PRN QID PRN Topamax (Topiramate) 100 Mg Tablet 1 Tab PO HS start after completed 25 mg tabs Topamax (Topiramate) 25 Mg Tablet 25 Mg PO QHS 1 tab HS for one week 2 tabs HS for one week, 3 tabs HS for one week, then start script for 100 HS Norvasc (Amlodipine Besylate) 2.5 Mg Tablet 1 Tab PO DAILY Reported Symbicort 160-4.5 Mcg Inhaler (Budesonide/Formoterol Fumarate) 10.2 Gm Hfa.aer.ad 2 Puff IH BID Proair Hfa Inhaler (Albuterol Sulfate) 8.5 Gm Hfa.aer.ad 2 Puff IH PRN Q4-6HRS [Brintellix ] 10 Mg PO BID Buspirone Hcl 5 Mg Tablet 1 Tab PO BID Vitals/I & O Vital Sign - Last 24 Hours 09/30/16 09/30/16 09/30/16 09/30/16 10:46 10:59 15:00 15:32 Temp 98.2 98.5 98.2 98.5 Pulse 87 85 Resp 18 18 B/P 113/69 115/62 Pulse Ox 95 99 O2 Delivery Nasal Cannula Nasal Cannula Nasal Cannula Nasal Cannula O2 Flow Rate 2.0 2.0 2.0 2.0 09/30/16 09/30/16 09/30/16 09/30/16 19:30 19:55 19:57 20:00 Temp 99.0 99.0 Pulse 85 Resp 18 B/P 110/66 Pulse Ox 93 96 96 O2 Delivery Nasal Cannula Nasal Cannula Nasal Cannula Nasal Cannula O2 Flow Rate 2.0 2.0 2.0 2.0 09/30/16 10/01/16 10/01/16 10/01/16 23:16 03:20 07:00 07:50 Temp 98.5 98.9 98.1 98.5 98.9 98.1 Pulse 81 85 97 Resp 18 18 14 B/P 108/66 112/64 117/60 Pulse Ox 99 98 95 O2 Delivery Nasal Cannula Nasal Cannula Nasal Cannula Nasal Cannula O2 Flow Rate 2.0 2.0 2.0 3.0 10/01/16 10/01/16 08:17 08:22 Pulse 97 B/P 117/60 Pulse Ox 98 O2 Delivery Nasal Cannula O2 Flow Rate 2.0 Intake and Output 09/30/16 09/30/16 10/01/16 15:00 23:00 07:00 Intake Total 420 ml 0 ml Balance 420 ml 0 ml NATHALY CM MD Oct 01, 2016 10:43
[2016-10-01 11:00] VITALS: BP 118/66
[2016-10-01] MEDS ORDERED: ASA/APAP/CAFFEINE 250/250/65MG TABLET. PO PRN (11:30)
--- NOTE | 2016-10-01 18:09 | PDOC3 ---
Discharge Summary Visit Information Date of Admission: Sep 28, 2016 Date of Discharge: Oct 01, 2016 Admitting Diagnosis: headache Final Diagnosis 1. intractable headache migraine flare - 2. copd stable 3. depression, 4. anxiety d/o 5. HTN 6. nausea, poor po intake 7. weakness, head pressure Problems Medical Problems: (1) Intractable migraine Status: Acute Brief Hospital Course Allergies Allergies Coded Allergies Type Severity Reaction Last Updated Verified No Known Drug Allergies 09/28/16 No Vital Signs Vital Signs Date Time Temp Pulse Resp B/P Pulse Ox O2 Delivery O2 Flow Rate FiO2 10/01/16 11:00 97.7 91 14 118/66 Nasal Cannula 3.0 97.7 10/01/16 08:17 98 Brief Hospital Course Ms. Richardson is a 61 old female admit with severe unremitting headache. was overusing Excedrin some nausea and caffeine withdrawl on admit better at DC, f/u neuro brain MRI normal Discharge Information Condition at Discharge: Improved Follow Up: Weeks Scheduled ([Brintellix ]) 10 MG PO BID (Reported) Albuterol Sulfate (Proair Hfa Inhaler) 2 PUFF IH PRN Q4-6HRS (Reported) Amlodipine Besylate (Norvasc) 1 TAB PO DAILY Budesonide/Formoterol Fumarate (Symbicort 160-4.5 Mcg Inhaler) 2 PUFF IH BID ( Reported) Buspirone Hcl (Buspirone Hcl) 1 TAB PO BID (Reported) Topiramate (Topamax) 25 MG PO QHS Topiramate (Topamax) 1 TAB PO HS Scheduled PRN Butalb/Acetaminophen/Caffeine (Heqebz-Kiylajjs-Rqvg 50-325-40) 1 TAB PO PRN Q6HRS PRN PRN MIGRAINE HEADACHE Sumatriptan Succinate (Imitrex) 50 MG PO PRN QID PRN PRN MIGRAINE HEADACHE Patient Instructions Patient Instructions time > 30 min CRISELDA CHEUNG MD Oct 01, 2016 18:09
== END 2016-10-01 11:59 | disposition home or self-care (01) | DRG 103 ==
LOC: ER 14:39 → 4 NORTH 17:55
PROVIDERS: ADMIT Internal Medicine; ATTEND Internal Medicine
DX: G43.919 Migraine, unspecified, intractable, without status migrainosus (principal); F32.9 Major depressive disorder, single episode, unspecified; F41.9 Anxiety disorder, unspecified; I10 Essential (primary) hypertension; J44.9 Chronic obstructive pulmonary disease, unspecified; J45.909 Unspecified asthma, uncomplicated; Z87.891 Personal history of nicotine dependence; Z99.81 Dependence on supplemental oxygen
CPT/HCPCS: 36415; 70450; 70551; 80048; 80053; 81001; 85027; 87040; 87086; 94250; 94640; 94760; 96372; 96374; 96375; J0780; J1200; J1650; J2270; J2765; J3030; J7030; 99285-25

== ENCOUNTER → 2017-01-18 | Outpatient (CLI) | payer MEDICARE, MEDICAID ==
[~2017-01-18] MED LIST changes: +AMLO2.5T2 PO; +BUTA1TAB23 PO; +SUMA25TA3 PO; +TOPI100T42 PO; +TOPI25TA52 PO
--- NOTE | 2017-01-18 10:38 | KCIC ---
Indication: COPD, smoker. Technique: Axial images and coronal and sagittal reformatted images are provided. Comparison is from January 17, 2016. One or more of the following individualized dose reduction techniques were utilized for this examination: 1. Automated exposure control 2. Adjustment of the mA and/or kV according to patient size 3. Use of iterative reconstruction technique Findings: There is severe emphysema. Band of presumed scarring in the right upper lobe is stable.Calcified granuloma in the right lower lobe is stable. 2 mm right lower lobe nodule on image 38 is retrospectively stable. 3 mm nodule in the right lower lobe on image 48 is new. There is no pleural effusion. Central airways are patent. There is no definite hilar or mediastinal adenopathy on this noncontrast study. There is atheromatous disease in the thoracic aorta. There are coronary artery calcifications. There are degenerative changes in the spine. IMPRESSION: 1. New pulmonary nodule in the right lower lobe, 12 month follow-up should be considered per Fleischner Society. 2. Other nodules and calcified granuloma are stable. 3. Severe emphysema with area of presumed scarring in the right upper lobe, stable. Electronically signed by: Esequiel Roy MD (01/18/2017 10:34 AM) [place] [id number]
== END | disposition home or self-care (01) ==
LOC: KCIC CT 10:01
PROVIDERS: ATTEND Internal Medicine Pulmonary Disease
DX: J44.9 Chronic obstructive pulmonary disease, unspecified (principal)
CPT/HCPCS: 71250

== ENCOUNTER → 2018-01-28 | Outpatient (CLI) | payer MEDICARE | END | disposition home or self-care (01) | LOC: KCIC CT 09:05 | DX: M47.894 Other spondylosis, thoracic region (principal); I10 Essential (primary) hypertension; J43.9 Emphysema, unspecified; G43.909 Migraine, unspecified, not intractable, without status migrainosus; R91.1 Solitary pulmonary nodule | CPT/HCPCS: 71250 ==

== ENCOUNTER → 2018-02-17 | Outpatient (CLI) | payer MEDICARE | END | disposition home or self-care (01) | LOC: PETSC 07:28 | DX: J43.8 Other emphysema (principal); I10 Essential (primary) hypertension; G43.909 Migraine, unspecified, not intractable, without status migrainosus; R91.8 Other nonspecific abnormal finding of lung field; Z87.891 Personal history of nicotine dependence | CPT/HCPCS: 78815; A9552 ==

== ENCOUNTER → 2018-03-21 | Outpatient (CLI) | payer MEDICAID, MEDICARE ==
[~2018-03-21] MED LIST changes: +CONTRAST GIVEN. MC PRN; +IOHEXOL 240 MG/ML 50ML VIAL. PO ONE; +IOHEXOL 300 MG/ML 100ML VIAL. IV ONE
--- NOTE | 2018-03-21 15:28 | KCIC ---
PQRS Compliance Statement: One or more of the following individualized dose reduction techniques were utilized for this examination: 1. Automated exposure control 2. Adjustment of the mA and/or kV according to patient size 3. Use of iterative reconstruction technique CT abdomen/pelvis with and without contrast 03/21/2018 10:00 AM INDICATION: Multiple lung nodules. COPD. Smoking history of 40 years. Possible lung cancer and recent PET/CT COMPARISON: None available TECHNIQUE: Multiple axial CT images of the abdomen and pelvis were obtained after the intravenous administration of 67 mL Omnipaque 300. Coronal and sagittal reformats are provided. FINDINGS: There is diffuse pulmonary emphysema. Nodular thickening is noted along the lateral margin of the major fissure on the right measuring 6 mm. Respiratory motion otherwise limits evaluation of the lung bases. Heart size is within normal limits. Focal hypoattenuation along the anterior margin of the lateral segment left hepatic lobe, adjacent to the fissure of the ligamentum teres is most favored to represent focal fatty infiltration. Spleen is nonenlarged. Adrenal glands are normal in appearance. Pancreas is normal. Gallbladder is present without adjacent inflammatory changes. Abdominal aorta is normal in caliber with moderate atherosclerotic changes. Left external iliac lymph node measures 4 mm by short axis. No pathologically enlarged lymph nodes are identified in abdomen and pelvis. There is no free fluid or free intraperitoneal air. The kidneys enhance symmetrically. There is no suspicious renal mass. There is no hydronephrosis. There are no calculi within the kidneys, ureters or urinary bladder. Oral contrast was administered. Opacified bowel loops demonstrate normal mucosal fold pattern. Small and large bowel are normal in caliber. There is no evidence for bowel obstruction. There are no pericolonic inflammatory changes. Appendix is not definitively visualized. Mild colonic diverticulosis is noted. Moderate amount of stool is noted throughout the colon. Urinary bladder is within normal limits given degree of distention. Uterus and adnexa are within normal limits. Adnexal varices are noted bilaterally. No suspicious osseous abnormalities visualized. IMPRESSION: No evidence for metastasis involving the abdomen and pelvis. Severe pulmonary emphysema of the lung bases. Electronically signed by: Krupa Marley MD (03/21/2018 3:25 PM) [id number]
== END | disposition home or self-care (01) ==
LOC: KCIC CT 08:40
PROVIDERS: ATTEND Internal Medicine Pulmonary Disease
DX: J43.9 Emphysema, unspecified (principal); K57.30 Diverticulosis of large intestine without perforation or abscess without bleeding; I70.0 Atherosclerosis of aorta; I10 Essential (primary) hypertension; G43.909 Migraine, unspecified, not intractable, without status migrainosus; Z87.891 Personal history of nicotine dependence
CPT/HCPCS: 74178; Q9966; Q9967

== ENCOUNTER → 2018-09-23 | Outpatient (CLI) | payer MEDICARE ==
[~2018-09-23] MED LIST changes: +ALBU2.5V8 IH; -CONTRAST GIVEN. MC PRN; -IOHEXOL 240 MG/ML 50ML VIAL. PO ONE; -IOHEXOL 300 MG/ML 100ML VIAL. IV ONE; -PROAIR HFA8.5 GM IH
--- NOTE | 2018-09-23 13:58 | KCIC ---
Noncontrast CT scan of the chest compared to similar study dated February 04, 2018 for lung nodule follow-up, past smoker, increasing shortness of air, oxygen dependence. TECHNIQUE: Contiguous helical 1.5 mm axial images are obtained from the thoracic inlet to the base of the diaphragm. Sagittal and coronal reformations are evaluated. FINDINGS: Extensive bullous of symphysis changes are redemonstrated. Probable scarring along the posterior medial aspect of the right upper lobe is stable. Calcified nodule the right lower lung is stable. The previously discovered nodule in the right lower lobe in the paraspinal region is smaller in size and stable in morphology from prior study, with no evidence to suggest interval growth. This is a maximum AP dimension of 1 cm today compared to prior measurement of 1.3 cm. here is also a band of scarring in the peripheral aspect the right lower lobe. This is stable as well. On the left, there are couple of small peripheral nodules which are stable as well. No lung nodules or masses are seen. No suspicious mediastinal, hilar, or axillary adenopathy. Coronary artery calcifications are seen. Heart size within normal limits. Evaluation of the upper abdominal organs is limited by lack of IV contrast, however no gross abnormalities are identified. No osteoblastic or osteolytic bone lesions. IMPRESSION: 1. Extensive bullous emphysematous changes, with multiple stable pulmonary nodules. Specifically, the recently discovered right medial lung base nodule is stable or perhaps slightly smaller. Nevertheless, periodic surveillance is warranted. Electronically signed by: Jovanny Griffin MD (09/23/2018 1:55 PM) [id number]
== END | disposition home or self-care (01) ==
LOC: KCIC CT 11:12
PROVIDERS: ATTEND Internal Medicine Pulmonary Disease
DX: J43.9 Emphysema, unspecified (principal); R91.8 Other nonspecific abnormal finding of lung field; I25.10 Atherosclerotic heart disease of native coronary artery without angina pectoris; I10 Essential (primary) hypertension; Z87.891 Personal history of nicotine dependence
CPT/HCPCS: 71250

== ENCOUNTER 2019-03-23 09:44 | Emergency (ER) | payer MEDICARE ==
[~2019-03-23] VITALS: Ht 154.9 cm; Wt 44.5 kg
[2019-03-23] MEDS ORDERED: MORPHINE SULFATE 2 MG/ML VIAL. IV ONE (10:30)
[2019-03-23] MEDS ORDERED: LIDOCAINE 2% 20 ML VIAL. IJ ONE (10:30)
[2019-03-23] MEDS ORDERED: ONDANSETRON PF 4 MG/2 ML VIAL. IV ONE (10:30)
--- NOTE | 2019-03-23 10:34 | PHYS DOC ---
Past Medical History Past Medical History: Anxiety, Asthma, COPD, Depression, Hypertension, Migraines Past Surgical History: No Surgical History Alcohol Use: None Drug Use: None Adult General Chief Complaint Chief Complaint: WEAKNESS/GENERALIZED HPI HPI Patient is a 63 year old female presents with multiple complaints. The patient has a history of COPD, and states that she is normally just on oxygen at night however over the last 3-4 days she's been having to have oxygen 24/7. The patient states she's been having to use 2-3 L of oxygen via nasal cannula at home. The patient states symptoms include headache, weakness, increased shortness of breath, and back pain. The patient states she does have a history of migraines that occur every several years. Rates her pain as 6 out of 10 in severity and sharp. Headache is localized behind the left eye. Review of Systems Review of Systems Constitutional: Denies fever or chills [] Eyes: Denies change in visual acuity, redness, or eye pain [] HENT: Denies nasal congestion or sore throat [] Respiratory: Reports increased shortness of breath [] Cardiovascular: No additional information not addressed in HPI [] GI: Denies abdominal pain, nausea, vomiting, bloody stools or diarrhea [] : Denies dysuria or hematuria [] Musculoskeletal: Reports back pain. Integument: Denies rash or skin lesions [] Neurologic: Reports headache, Denies focal weakness or sensory changes [] Endocrine: Denies polyuria or polydipsia [] Complete systems were reviewed and found to be within normal limits, except as documented in this note. Current Medications Current Medications Current Medications Medications (Trade) Dose Ordered Sig/[facility] Start Time Stop Time Status Last Admin Dose Admin Albuterol/ Ipratropium (Duoneb) 3 ml 1X ONCE 03/23/19 11:00 03/23/19 11:01 DC 03/23/19 10:59 3 ML Lidocaine HCl 20 ml 1X ONCE 03/23/19 10:30 03/23/19 10:32 DC 03/23/19 11:02 20 ML Methylprednisolone Sodium Succinate (SOLU-Medrol 125MG VIAL) 125 mg 1X ONCE 03/23/19 11:00 03/23/19 11:01 DC 03/23/19 11:02 125 MG Morphine Sulfate (Morphine Sulfate) 2 mg 1X ONCE 03/23/19 10:30 03/23/19 10:32 DC 03/23/19 11:02 2 MG Ondansetron HCl (Zofran) 4 mg 1X ONCE 03/23/19 10:30 03/23/19 10:32 DC 03/23/19 11:02 4 MG Allergies Allergies Allergies Coded Allergies Type Severity Reaction Last Updated Verified No Known Drug Allergies 09/28/16 No Physical Exam Physical Exam Constitutional: Well developed, well nourished, no acute distress, non-toxic appearance. [] HENT: Normocephalic, atraumatic, bilateral external ears normal, oropharynx moist, no oral exudates, nose normal. [] Eyes: PERRLA, EOMI, conjunctiva normal, no discharge. [] Neck: Normal range of motion, no tenderness, supple, no stridor. [] Cardiovascular:Heart rate regular rhythm, no murmur [] Lungs & Thorax: Bilateral breath sounds diminished. Abdomen: Bowel sounds normal, soft, no tenderness, no masses, no pulsatile masses. [] Skin: Warm, dry, no erythema, no rash. [] Back: No tenderness, no CVA tenderness. [] Extremities: No tenderness, no cyanosis, no clubbing, ROM intact, no edema. [] Neurologic: Alert and oriented X 3, normal motor function, normal sensory function, no focal deficits noted. [] Psychologic: Affect normal, judgement normal, mood normal. [] Current Patient Data Vital Signs Vital Signs Date Time Temp Pulse Resp B/P (MAP) Pulse Ox O2 Delivery O2 Flow Rate FiO2 03/23/19 11:02 26 03/23/19 11:00 95 Nasal Cannula 2.0 03/23/19 09:44 98.5 85 125/59 (81) 98.5 Lab Values Laboratory Tests Test 03/23/19 10:01 White Blood Count 5.4 x10^3/uL (4.0-11.0) Red Blood Count 4.46 x10^6/uL (3.50-5.40) Hemoglobin 13.2 g/dL (12.0-15.5) Hematocrit 39.8 % (36.0-47.0) Mean Corpuscular Volume 89 fL (79-100) Mean Corpuscular Hemoglobin 30 pg (25-35) Mean Corpuscular Hemoglobin Concent 33 g/dL (31-37) Red Cell Distribution Width 12.9 % (11.5-14.5) Platelet Count 202 x10^3/uL (140-400) Neutrophils (%) (Auto) 64 % (31-73) Lymphocytes (%) (Auto) 19 % (24-48) L Monocytes (%) (Auto) 11 % (0-9) H Eosinophils (%) (Auto) 3 % (0-3) Basophils (%) (Auto) 3 % (0-3) Neutrophils # (Auto) 3.5 x10^3/uL (1.8-7.7) Lymphocytes # (Auto) 1.1 x10^3/uL (1.0-4.8) Monocytes # (Auto) 0.6 x10^3/uL (0.0-1.1) Eosinophils # (Auto) 0.2 x10^3/uL (0.0-0.7) Basophils # (Auto) 0.1 x10^3/uL (0.0-0.2) Sodium Level 146 mmol/L (136-145) H Potassium Level 3.7 mmol/L (3.5-5.1) Chloride Level 104 mmol/L (98-107) Carbon Dioxide Level 35 mmol/L (21-32) H Anion Gap 7 (6-14) Blood Urea Nitrogen 12 mg/dL (7-20) Creatinine 0.7 mg/dL (0.6-1.0) Estimated GFR (Cockcroft-Gault) 84.2 BUN/Creatinine Ratio 17 (6-20) Glucose Level 94 mg/dL (70-99) Lactic Acid Level 0.7 mmol/L (0.4-2.0) Calcium Level 8.8 mg/dL (8.5-10.1) Total Bilirubin 0.3 mg/dL (0.2-1.0) Aspartate Amino Transferase (AST) 15 U/L (15-37) Alanine Aminotransferase (ALT) 11 U/L (14-59) L Alkaline Phosphatase 93 U/L (46-116) Troponin I Quantitative < 0.017 ng/mL (0.000-0.055) ML-Ggf-B-Type Natriuretic Peptide 96 pg/mL (0-124) Total Protein 6.4 g/dL (6.4-8.2) Albumin 3.8 g/dL (3.4-5.0) Albumin/Globulin Ratio 1.5 (1.0-1.7) Laboratory Tests 03/23/19 10:01 Laboratory Tests 03/23/19 10:01 EKG EKG EKG interpreted by Dr. Guzman Sinus with rate of 82. No STEMI. [] Radiology/Procedures Radiology/Procedures Placed 5 mL of 2% Lidocaine on an ob swab and inserted into L nare. Headache was 6/10, placed in nare for 1.5 minutes. Afterwards headache is 0/10. [facility] [address] [place] [address] IMAGING REPORT Signed PATIENT: TROY MURPHY ACCOUNT: [id number] : 1955 LOCATION: ER AGE: 63 SEX: F EXAM STATUS: REG ER ORD. PHYSICIAN: PHILLIP PEREA APRN REASON: headache PROCEDURE: CT HEAD WO CONTRAST CT HEAD WO CONTRAST Clinical indications: Headache. COMPARISON: September 28, 2016. Technique: Noncontrast axial cross sectional scanning of the head was performed. PQRS compliance Statement One or more of the following individualized dose reduction techniques were utilized for this study: 1. Automated exposure control 2. Adjustment of the mA and/or kV according to patient size 3. Use of iterative reconstruction technique Findings: No acute intracranial hemorrhage or midline shift or mass-effect or hydrocephalus or extra-axial fluid collection is seen. No focal hypodense area or sulci effacement is seen to indicate an acute infarct or edema radiographically. No skull fracture or pneumocephalus is seen. No opacification of the mastoid sinuses or the middle ear cavities or the paranasal sinuses is seen. The maxillary sinuses are not completely seen in this study. Impression: No acute intracranial abnormality is seen. Electronically signed by: Angel Block MD (03/23/2019 11:41 AM) [facility] DICTATED and SIGNED BY: ANGEL BLOCK MD DATE: 03/23/19 1141 [facility] [address] [place] [address] IMAGING REPORT Signed PATIENT: TROY MURPHY ACCOUNT: [id number] : 1955 LOCATION: ER AGE: 63 SEX: F EXAM STATUS: REG ER ORD. PHYSICIAN: PHILLIP PEREA APRN REASON: shortness of breath PROCEDURE: CHEST PA & LATERAL CHEST PA LATERAL History: Shortness of breath Comparison: 09/23/2018 CT chest without contrast. Findings: The cardiomediastinal silhouette is normal. Pulmonary vasculature is normal. The lungs are clear. No pleural effusion or pneumothorax is seen. Pulmonary hyperinflation is present. Costophrenic angle blunting bilaterally on the lateral view which appears related to pulmonary hyperinflation and pleural thickening noted. There is no acute bone abnormality. IMPRESSION: No acute cardiopulmonary process. COPD. Electronically signed by: Gerard Benites MD (03/23/2019 10:54 AM) [facility] DICTATED and SIGNED BY: GERARD BENITES MD DATE: 03/23/19 1054 Course & Med Decision Making Course & Med Decision Making Pertinent Labs and Imaging studies reviewed. (See chart for details) Will get labs, Chest X-ray, CT head, labs, and supportive care. Imaging is unremarkable. Labs are unremarkable. Patient states she feels improved after headache medication and after breathing treatment. Appears to have COPD exacerbation. Offered patient admission but she declined. Patient was told of the risks of getting worse at home that include . Patient was told that if she gets worse to come back to ER. Will d/c home with Doxycycline and Prednisone. Dragon Disclaimer Dragon Disclaimer This electronic medical record was generated, in whole or in part, using a voice recognition dictation system. Departure Departure Impression: Primary Impression: COPD with acute exacerbation Disposition: 01 HOME, SELF-CARE Condition: STABLE Referrals: ANTWAN FIGUEROA APRN (PCP) Patient Instructions: Chronic Obstructive Pulmonary Disease Exacerbation Additional Instructions: Thank you for visiting [facility]. We appreciate you trusting us with your care. If any additional problems come up don't hesitate to return to visit us. Please follow up with your primary care provider so they can plan additional care if needed and know about the problem that you had. If symptoms worsen come back to the Emergency Department. Any concerning symptoms that start such as chest pain, shortness of air, weakness or numbness on one side of the body, running high fevers or any other concerning symptoms return to the ER. You have been prescribed an antibiotic today to help fight your infection. Please take all of the antibiotic as directed. If after 48 hours the infection is not improving, please return for more care. If the infection worsens, return to ER for additional care. Please fill your medications at any pharmacy and follow the prescription instructions. Scripts Prednisone (PREDNISONE) 20 Mg Tablet 1 TAB PO BID for 5 Days, #10 TAB Prov: PHILLIP PEREA APRN 03/23/19 Doxycycline Hyclate (DOXYCYCLINE HYCLATE) 100 Mg Capsule 1 CAP PO BID for 7 Days, #14 CAP Prov: PHILLIP PEREA APRN 03/23/19 PHILLIP PEREA APRN Mar 23, 2019 10:34
[2019-03-23 10:45] LABS: BASO # 0.1 x10^3/uL (0.0-0.2); BASO % 3 % (0-3); EOS # 0.2 x10^3/uL (0.0-0.7); EOS % 3 % (0-3); HEMATOCRIT 39.8 % (36.0-47.0); HEMOGLOBIN 13.2 g/dL (12.0-15.5); LYMPH # 1.1 x10^3/uL (1.0-4.8); LYMPH % 19 % (24-48); MEAN CORPUSCULAR HEMOGLOBIN 30 pg (25-35); MEAN CORPUSCULAR HGB CONC 33 g/dL (31-37); MEAN CORPUSCULAR VOLUME 89 fL (79-100); MONO # 0.6 x10^3/uL (0.0-1.1); MONO % 11 % (0-9); NEUT # 3.5 x10^3/uL (1.8-7.7); NEUT % 64 % (31-73); PLATELET COUNT 202 x10^3/uL (140-400); RED BLOOD COUNT 4.46 x10^6/uL (3.50-5.40); RED CELL DISTRIBUTION WIDTH 12.9 % (11.5-14.5); WHITE BLOOD COUNT 5.4 x10^3/uL (4.0-11.0)
--- NOTE | 2019-03-23 10:57 | RAD ---
CHEST PA LATERAL History: Shortness of breath Comparison: 09/23/2018 CT chest without contrast. Findings: The cardiomediastinal silhouette is normal. Pulmonary vasculature is normal. The lungs are clear. No pleural effusion or pneumothorax is seen. Pulmonary hyperinflation is present. Costophrenic angle blunting bilaterally on the lateral view which appears related to pulmonary hyperinflation and pleural thickening noted. There is no acute bone abnormality. IMPRESSION: No acute cardiopulmonary process. COPD. Electronically signed by: Gerard Toledo MD (03/23/2019 10:54 AM) [facility]
[2019-03-23] MEDS ORDERED: IPRATRPIUM/ALBUTEROL 0.5/2.5MG 3 ML NEBU. NEB ONE (11:00)
[2019-03-23] MEDS ORDERED: methylPREDNISolone SOD SUCC PF 125 MG/2 ML VIAL. IV ONE (11:00)
[2019-03-23 11:04] LABS: CALCIUM 8.8 mg/dL (8.5-10.1); CREATININE 0.7 mg/dL (0.6-1.0); GFR 84.2; POTASSIUM 3.7 mmol/L (3.5-5.1)
--- NOTE | 2019-03-23 11:07 | EKG ---
[facility] [address] [place] [address] Test Date: 2019-03-23 Test Time: 09:53:25 Pat Name: TROY MURPHY Department: Room: Gender: F [employer] Helper: : 1955 Requested By: PHILLIP PEREA Order Number: [id number] Reading MD: Measurements Intervals [place] Rate: 82 P: 90 CT: 132 QRS: 82 QRSD: 82 T: -5 QT: 406 QTc: 478 Interpretive Statements SINUS RHYTHM T ABNORMALITY IN INFERIOR LEADS PROLONGED QT ABNORMAL ECG RI6.01 Unconfirmed report No previous ECG available for comparison
[2019-03-23 11:15] LABS: ALBUMIN 3.8 g/dL (3.4-5.0); ALBUMIN/GLOBULIN RATIO 1.5 (1.0-1.7); TOTAL BILIRUBIN 0.3 mg/dL (0.2-1.0); TOTAL PROTEIN 6.4 g/dL (6.4-8.2)
--- NOTE | 2019-03-23 11:45 | RAD ---
CT HEAD WO CONTRAST Clinical indications: Headache. COMPARISON: September 28, 2016. Technique: Noncontrast axial cross sectional scanning of the head was performed. PQRS compliance Statement One or more of the following individualized dose reduction techniques were utilized for this study: 1. Automated exposure control 2. Adjustment of the mA and/or kV according to patient size 3. Use of iterative reconstruction technique Findings: No acute intracranial hemorrhage or midline shift or mass-effect or hydrocephalus or extra-axial fluid collection is seen. No focal hypodense area or sulci effacement is seen to indicate an acute infarct or edema radiographically. No skull fracture or pneumocephalus is seen. No opacification of the mastoid sinuses or the middle ear cavities or the paranasal sinuses is seen. The maxillary sinuses are not completely seen in this study. Impression: No acute intracranial abnormality is seen. Electronically signed by: Renan Block MD (03/23/2019 11:41 AM) [facility]
[2019-03-23] MEDS ORDERED: DOXY100C2 PO (12:47)
[2019-03-23] MEDS ORDERED: PRED20TA PO (12:47)
[2019-03-23 13:00] VITALS: BP 115/61
== END 2019-03-23 13:25 | disposition home or self-care (01) ==
LOC: ER 09:44
DX: J44.1 Chronic obstructive pulmonary disease with (acute) exacerbation (principal); I10 Essential (primary) hypertension; G43.909 Migraine, unspecified, not intractable, without status migrainosus
CPT/HCPCS: 36415; 70450; 71046; 80053; 83605; 83880; 84484; 85025; 93005; 94640; 96372; 96374; 96375; 99285; J2001; J2270; J2405; J2930; J7620

== ENCOUNTER → 2019-06-23 | Outpatient (CLI) | payer MEDICARE ==
[~2019-06-23] MED LIST changes: +DOXY100C2 PO; +PRED20TA PO
--- NOTE | 2019-06-23 17:46 | KCIC ---
CT CHEST WO CONTRAST Indication: Follow up lung nodule. 40+ year smoking history. Exposure: One or more of the following individualized dose reduction techniques were utilized for this examination: 1. Automated exposure control 2. Adjustment of the mA and/or kV according to patient size 3. Use of iterative reconstruction technique. Technique: Standard imaging without intravenous contrast. Comparison: 09/23/2018. FINDINGS: No evidence of thyroid mass. No significant lymph node enlargement is identified. Aorta is mildly ectatic, appears similar. No gross aortic aneurysm. Ascending aorta measures about 3.4 cm transverse diameter, similar to prior study. Coronary artery calcification. No pericardial effusion. No significant pleural effusion. Severe emphysematous disease with blebs and bullae again identified. Calcified nodule in the right lower lobe superior segment is again seen. Nodule in the left upper lobe, series 6, image 92 measuring about 3 mm is unchanged. Nodule in the right lower lobe adjacent to the spine measures 10 mm, and is unchanged since the prior study. Scattered smaller nodules are identified without gross enlargement. Trachea and mainstem bronchi are patent. No evidence of pneumothorax. Degenerative spondylosis. No evidence of aggressive bone destruction. Scans to the upper abdomen are limited by technique. No obvious acute abnormality is seen however. IMPRESSION: 1. Severe emphysematous disease. 2. Pulmonary nodules appear stable since prior exam. Electronically signed by: Shaq Pan MD (06/23/2019 5:43 PM) [facility]
== END ==
LOC: KCIC CT 08:43
PROVIDERS: ATTEND Internal Medicine Pulmonary Disease
DX: J43.8 Other emphysema (principal); I77.819 Aortic ectasia, unspecified site; I25.10 Atherosclerotic heart disease of native coronary artery without angina pectoris; M47.814 Spondylosis without myelopathy or radiculopathy, thoracic region; R91.8 Other nonspecific abnormal finding of lung field
CPT/HCPCS: 71250

== ENCOUNTER → 2020-06-21 | Outpatient (CLI) | payer MEDICARE ==
--- NOTE | 2020-06-21 13:32 | KCIC ---
CT chest without contrast PQRS statement: CT scans at this facility use dose reduction including either automated exposure cont rol, iterative reconstructions, and /or weight based radiation dosing via mA and kV modification when appropriate to reduce radiation dose to as low as reasonably achievable. HISTORY: Pulmonary nodule. Prior tobacco smoker. COMPARISON: CT chest June 23, 2019 and prior studies. FINDINGS: Calcified plaque coronary arteries and aortic arch. Heart size normal. Pulmonary vessels an d esophagus unremarkable. No adenopathy in the chest. Mild thoracic disc height loss and anterior dis c osteophytes. Pulmonary emphysema with diffuse areas of early bullous change again demonstrated. At the left upper lobe anterior segment near the mediastinal pleura there is a somewhat linear solid irregular pulmonary nodule measuring 1.8 x 0.8 cm image 66 which is new with a few small satellite no dules anterior and medial of the nodule measuring up to 5 mm in size. 5 mm left apical nodule image 16 versus scarring stable. Left apical 6 mm nodule image 21 is new. Mild endobronchial plugging of the inferior lingula stable. Subpleural linear atelectasis or scarring of the right upper lobe posterior segment stable. 4 mm nodule right upper lobe posteriorly image 42 is new. Right upper lobe anterior subpleural 2 mm nodule image 66 is stable. 4 mm nodule right upper lobe adj acent of the mediastinal pleura image 75 stable. Right lower lobe calcified granuloma. IMPRESSION: 1. Left upper lobe anterior segment 1.8 x 0.8 cm somewhat linear solid irregular pulmonary nodule is new from prior imaging, and has a few tiny satellite nodules surrounding it anteriorly, this is munira rning for lung malignancy. 2. Left upper lobe apical 6 mm nodule in right upper lobe posterior segment 4 mm nodule are new from prior imaging. 3. Other pre-existing pulmonary nodules and areas of linear scarring are stable. 4. Bullous pulmonary emphysema is stable. 5. No adenopathy in the chest evident. Electronically signed by: Roe Montiel MD (06/21/2020 9:08 AM) [facility]
== END ==
LOC: KCIC CT 08:39
PROVIDERS: ATTEND Internal Medicine Pulmonary Disease
DX: J43.9 Emphysema, unspecified (principal); R91.1 Solitary pulmonary nodule; Z87.891 Personal history of nicotine dependence
CPT/HCPCS: 71250

== ENCOUNTER → 2020-09-23 | Outpatient (CLI) | payer MEDICARE ==
--- NOTE | 2020-09-23 10:52 | KCIC ---
CT of the chest without contrast 09/23/2020 Indication: [Follow-up lung nodule] Comparison study: [CT of the chest without contrast June 21, 2020 TECHNIQUE: Multidetector CT imaging of the chest was performed without the administration of IV contr ast. Heart size is normal. No pericardial effusion is identified. Coronary calcification is noted. No path ologically enlarged mediastinal adenopathy is seen on limited noncontrast enhanced evaluation of medi astinum. Severe emphysematous changes are seen throughout the bilateral lungs. There is an approximately 9 mm ovoid nodular opacity in the anterior left upper lobe ( axial image 20 ). There is interval decreased prominence of the previously demonstrated linear component, possibly r epresenting waxing and waning atelectasis. Punctate satellite nodules are unchanged. Other scattered nodular opacities throughout the bilateral lungs are grossly stable. Reference nodule can be seen in the apical left upper lobe measuring 4 to 5 mm in diameter (axial image 20. There is a cluster of sma ll nodules in the apical posterior left upper lobe seen on axial images 18 through 28. Reference punc james nodule in the subpleural right upper lobe anteriorly measures 2 mm in diameter (axial image 69). Subpleural thickening in the apical right upper lobe is unchanged. Predominantly calcified nodule in the right lower lobe is unchanged measuring 7 mm in diameter. Limited visualization of the upper abd omen demonstrates no acute abnormality. No acute osseous changes are identified. IMPRESSION: 1. Decreased linear component of the largest left upper lobe noncalcified nodule. Rounded central com ponent appears stable measuring approximately 9 mm. 2. Other scattered subcentimeter pulmonary nodules are unchanged. No new or enlarging masses/nodules are identified. 3. Severe centrilobular emphysematous changes. CT DOSING PQRS STATEMENT: One or more of the following individualized dose reduction techniques were utilized for this examinat ion: 1. Automated exposure control 2. Adjustment of the mA and/or kV according to patient size 3. Use of iterative reconstruction technique Electronically signed by: Luke Pichardo MD (09/23/2020 10:50 AM) [id number]
== END ==
LOC: KCIC CT 09:49
PROVIDERS: ATTEND Internal Medicine Pulmonary Disease
DX: J43.2 Centrilobular emphysema (principal); R91.1 Solitary pulmonary nodule
CPT/HCPCS: 71250

== ENCOUNTER → 2021-09-12 | Outpatient (CLI) | payer MEDICARE, OTHER ==
[~2021-09-12] MED LIST changes: -DOXY100C2 PO; +DOXY100C3 PO
--- NOTE | 2021-09-14 19:38 | RAD ---
STUDY: CT chest without contrast INDICATION: Lung nodules. Follow-up. COMPARISON: Most recently on 09/23/2020 TECHNIQUE: Helical CT imaging of the chest performed without the use of intravenous contrast. Sagitta l and coronal reformats were obtained. One or more of the following individualized dose reduction techniques were utilized for this examinat ion: 1. Automated exposure control 2. Adjustment of the mA and/or kV according to patient size 3. Use of iterative reconstruction technique. FINDINGS: Lungs: Advanced emphysema with multifocal pleuroparenchymal scarring and bullae formation. Developmen t of a nodular opacity partly pleural-based at the lateral aspect of the left upper lobe, image 67 se tio 3, measuring up to 11 mm transverse by 9 mm AP by 5 mm craniocaudal. An elongated nodular opacit y at the anteromedial left upper lobe, image 97 series 3 is unchanged in size. Newly seen branching n odularity at the anterior aspect of the right middle lobe, image 160 series 3, is not suspicious base d on morphology. Several small pulmonary nodules scattered elsewhere are unchanged. Small airway opac ification at a few locations. Right lower lobe granuloma. Vasculature: Calcific atherosclerosis with trivessel coronary artery involvement. Nonaneurysmal aorta . Mediastinum/santa: Unchanged lymph nodes. Neck/axilla/chest wall: No significant change. Bones: Osteopenia and degenerative findings. No acute or aggressive abnormality. Upper abdomen: No incidental finding that would warrant dedicated follow-up. IMPRESSION: 1. Newly developed subpleural left upper lobe nodule which is wider more so than tall and measures 1 1 x 9 x 5 mm. This nodule is considered Lung-RADS 4B and would meet criteria for PET/CT or tissue frances pling, however given development since the CT one year prior a one month CT follow-up could be consid ered to exclude a possible infectious or inflammatory etiology. 2. No significant change in size of scattered additional nodules. Newly seen branching opacity at th e anterior aspect of the right middle lobe which is not suspicious based on morphology but could be a ssessed on follow-up as well (image 159 series 3). 3. Severe emphysema with bullae formation and pleuroparenchymal scarring. Trivessel calcific coronar y artery disease. Electronically signed by: AIDA BARBER MD (09/14/2021 7:36 PM) [facility]
== END ==
LOC: CT 12:51
PROVIDERS: ATTEND Internal Medicine Pulmonary Disease
DX: R91.8 Other nonspecific abnormal finding of lung field (principal); J43.9 Emphysema, unspecified; J98.11 Atelectasis; J84.10 Pulmonary fibrosis, unspecified; F17.200 Nicotine dependence, unspecified, uncomplicated; I25.10 Atherosclerotic heart disease of native coronary artery without angina pectoris; M85.88 Other specified disorders of bone density and structure, other site
CPT/HCPCS: 71250